=== PATIENT | female | born 1955 | race Caucasian/White ===

== ENCOUNTER 2023-11-11 14:57 | Outpatient (RCR) | payer MEDICARE, SELFPAY | END 2023-11-14 06:54 | disposition home or self-care (01) | LOC: RPT 14:57 | PROVIDERS: ATTENDING PHYSICIAN Family Medicine | DX: M25.551 Pain in right hip (principal); Z73.6 Limitation of activities due to disability | CPT/HCPCS: 97110 ==

== ENCOUNTER → 2024-01-19 06:30 | Day surgery (SDC) | payer MEDICARE, SELFPAY | LOC: GI 06:30 | PROVIDERS: ATTENDING PHYSICIAN Specialist | DX: Z12.11 Encounter for screening for malignant neoplasm of colon (principal); R19.4 Change in bowel habit; K57.30 Diverticulosis of large intestine without perforation or abscess without bleeding; D12.0 Benign neoplasm of cecum; D12.2 Benign neoplasm of ascending colon; D12.3 Benign neoplasm of transverse colon | CPT/HCPCS: 45385; 45380; 88305 ==

== ENCOUNTER → 2024-08-23 07:03 | Outpatient (REF) | payer MEDICARE, SELFPAY | LOC: MRI 07:03 | PROVIDERS: ATTENDING PHYSICIAN Psychiatry & Neurology Neurology; FAMILY PHYSICIAN Family Medicine | DX: G45.9 Transient cerebral ischemic attack, unspecified (principal) | CPT/HCPCS: 70551 ==

== ENCOUNTER → 2024-09-04 10:18 | Outpatient (REF) | payer MEDICARE, SELFPAY | LOC: RAD 10:18 | PROVIDERS: ATTENDING PHYSICIAN Psychiatry & Neurology Neurology; FAMILY PHYSICIAN Family Medicine | DX: G45.9 Transient cerebral ischemic attack, unspecified (principal) | CPT/HCPCS: 93880 ==

== ENCOUNTER → 2025-03-21 14:47 | Outpatient (REF) | payer MEDICARE, SELFPAY | LOC: RAD 14:47 | PROVIDERS: ATTENDING PHYSICIAN Student in an Organized Health Care Education/Training Program | DX: R60.0 Localized edema (principal); R22.41 Localized swelling, mass and lump, right lower limb | CPT/HCPCS: 93971 ==

== ENCOUNTER 2025-05-09 09:51 | Inpatient (IN) | payer MEDICARE, SELFPAY ==
[2025-05-09] VITALS (56 sets, daily range): BP systolic 62–115; BP diastolic 50–83; BMI 24.1
[2025-05-09 04:41] LABS: % Basophils 0.8 % (0-2); % Eosinophils 3.1 % (0-6); % Immature Granulocytes 0.3 % (0-0.5); % Lymphocytes 36.8 % (20.5-51.1); % Monocytes 9.8 % (1.7-9.3); % Neutrophils 49.2 % (42.2-75.2); Absolute Basophils 0.1 10^3/uL (0-0.2); Absolute Eosinophils 0.3 10^3/uL (0-0.7); Absolute Lymphocytes 2.9 10^3/uL (1.2-3.4); Absolute Monocytes 0.8 10^3/uL (0.1-0.6); Absolute Neutrophils 3.9 10^3/uL (1.4-6.5); Hematocrit 44.9 % (37.0-47.0); Hemoglobin 15.1 g/dL (12.0-16.0); Mean Corp Hgb Conc. 33.6 g/dL (33.0-37.0); Mean Corpuscular Hgb 31.7 pg (27.0-31.0); Mean Corpuscular Volume 94.3 fL (81.0-99.0); Mean Platelet Volume 9.6 fL (7.4-10.4); Nucleated Red Blood Cells % 0 %; Platelet Count 218 10^3/uL (130-400); Red Blood Cell Count 4.76 10^6/uL (4.20-5.40); Red Cell Dist. Width 13.2 % (11.5-14.5)
[2025-05-09 04:59] LABS: ALT (SGPT) 17 U/L (0-35); AST (SGOT) 24 U/L (14-36); Albumin 4.1 g/dl (3.5-5.0); Alkaline Phosphatase 68 U/L (38-126); Blood Urea Nitrogen 25 mg/dl (7-17); Calcium 9.5 mg/dl (8.4-10.2); Carbon Dioxide 19 mmol/L (22-30); Chloride 112 mmol/L (98-107); Estimated Creatinine Clearance 48 ml/min; Glucose 92 mg/dl (70-99); Potassium 3.4 mmol/L (3.5-5.1); Sodium 142 mmol/L (135-145); Total Bilirubin 0.7 mg/dl (0.2-1.3); Total Protein 6.4 g/dl (6.3-8.2); eGFR > 60.00
[2025-05-09 05:01] LABS: Troponin I 0.012 ng/ml
[2025-05-09] MEDS: NSS 1000 IV ×5 (05:35→20:10)
--- NOTE | 2025-05-09 05:42 | ED.GENMED ---
History of Present Illness
<Alyse Muñoz PA-C - Last Filed: 05/10/25 08:34>
General
Chief Complaint: Blood Pressure Problem
Source: patient
Exam Limitations: none
Time Seen by Provider: 05/09/25 05:19
Nursing documentation reviewed up to this point in time: agreed with
History of Present Illness
History of Present Illness:
see MDM
Past History
<SAGE Hall Last Filed: 05/10/25 08:34>
Past History
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
ED Past Surgical History: Brain and Gynecological
Social History
Tobacco: Non-smoker
Alcohol: None
Drug: None
Personal: Single
Review of Systems
<SAGE Hall Last Filed: 05/10/25 08:34>
Review of Systems
Allergies reviewed?: Yes
All Other Systems: Not applicable
Phy Exam
<SAGE Hall Last Filed: 05/10/25 08:34>
Physical Exam
Physical Exam:
GENERAL: Alert , in no apparent distress; awake and alert, very conversive; no distress
EYE: pupils equal and reactive
NECK: Supple
ENT: o/p clr, mmm.
CARDIAC: irregularly irregular, tachycardic, no murmur
LUNGS: Clear breath sounds bilaterally, no acute respiratory distress, no wheezes/rales/rhonchi
ABDOMEN: Soft, without focal tenderness, no r/g, no cvat, normal bowel sounds
NEUROLOGICAL: Alert and oriented, no focal neuro deficits
SKIN: Warm and dry, skin intact.
MUSCULOSKELETAL: No edema, well perfused. neg celeste's sign
PSYCH: Normal and appropriate interaction.
Scores
<Alyse Muñoz PA-C - Last Filed: 05/10/25 08:34>
[id number] Score for Afib Stroke Risk
Age in Years (65=0, 65-74=1, >/=75=2): 65-74
Sex (Female=+1): Female
Congestive Heart Failure History (Yes=+1): Yes
Hypertension History (Yes=+1): No
Stroke/TIA/Thromboembolism History (Yes=+2): Yes
Vascular Disease History (Yes=+1): No
Diabetes Mellitus (Yes=+1): No
Score: 5
Anticoagulation Recommendations: Recommend anticoagulation (as validated in nonvalvular fib)
<Lupe Meyer DO - Last Filed: 05/09/25 08:44>
[id number] Score for Afib Stroke Risk
Score: 5
Anticoagulation Recommendations: Recommend anticoagulation (as validated in nonvalvular fib)
Course
<Alyse Muñoz PA-C - Last Filed: 05/10/25 08:34>
Orders/Labs/Results
Orders:
Orders
05/09/25 04:26
Electrocardiogram (*1) Urgent
Reason for Study: Syncope
05/09/25 04:27
EKG- Treatment ONCE
05/09/25 04:28
Complete Blood Count/With Diff Urgent
Comprehensive Metabolic Panel Urgent
Magnesium Urgent
Comment: ADD ON
NT-proBNP Urgent
Phosphorus Urgent
Comment: ADD ON
Troponin I Urgent
05/09/25 05:19
CR Chest Portable - 1 View Urgent
Comment:
Reason For Exam: new onset afib with rvr, hypotension
Reason Study Needs to be Portable: Patient Unstable
05/09/25 05:33
0.9% Sodium Chloride 1000 ml [Nss] 1,000 ml IV BOLUS
05/09/25 05:41
Lactic Acid Urgent
05/09/25 06:07
CT Chest PE Study Urgent
Comment:
Reason For Exam: hypotension, new onset afib
05/09/25 06:15
0.9% Sodium Chloride 1000 ml [Nss] 1,000 ml IV 500 mls/hr
05/09/25 08:23
Echo 2D MMode Color/Doppler Routine
Reason for Study: hypotension, AFIB
Comment: sooner rather than later please and thank you!
05/09/25 08:26
CARDIOLOGY CONSULT Routine
Consulting Provider: Patrick Lance
Was physician already notified: Yes
05/09/25 08:47
Potassium Chloride [KCl] 40 meq PO NOW ONE
05/09/25 08:54
Admit/Transfer Patient As Directed
Co-Sign Provider:
Level of Care: Inpatient admission
Assign to:: ICU
Physician / Group: Riaz/hospitalist
Diagnosis: new onset A fib RVR, hypotension
Reason for Hospitalization: new onset A fib RVR, hypotension
Expected length of stay greater than two midnights?: Yes
ELOS- Estimated Length of Stay in days: 3
I certify the patient meets the requirements for IP care: Yes
PRN Pain Medication Management As Directed
May give lesser potent ordered pain med per pt: Yes
preference::
Protocol:: Medication orders for pain may be administered in a
manner that supports deferring to patient preference
when the pt is:
- Requesting an ordered lesser potent pain medication.
Least to most potent pain medications are defined
as: acetaminophen < NSAID < tramadol < opioids
(morphine, oxycodone, hydromorphone).
- Requesting a lesser dose of the same medication IF
ORDERED.
- Requesting a less intrusive route of administration
if both routes are prescribed by the provider (PO <
IV).
05/09/25 08:55
Code Status As Directed
Resuscitation Status: Do not resuscitate
Reached after discussion with pt or family/Healthcare POA: Yes
DNR Bracelet Application ONCE
05/09/25 09:15
Blood Culture Q30M
TRACEY Source: Blood/Venous
Specimen Description:
05/09/25 09:18
CT Head W/o Iv Contrast Routine
Comment:
Reason For Exam: headache, hx brain mets/cranitomy
Consult Neurology [NEUROLOGY CONSULT] Routine
Consulting Provider: Ariel Cain
Was physician already notified: Yes
Reason for consult: safety of OAC for AFIB, hx TIA, but patient with hx brain mets/craniotomy
05/09/25 09:20
ONCOLOGY CONSULT Routine
Consulting Provider: Wolfgang Meredith
Was physician already notified: Yes
Reason for consult: hx breast cancer with mets to brain and lungs, AFIB-considering OAC safety
05/09/25 Lunch
Cholesterol Lowering
At Your Request: Full Participation
Does patient need a safe tray?: No
Reason for opting out of Biomedical Analytical Scientist order writing: Provider Decision
Cholesterol Lowering: Sodium, 2 Gram
05/09/25 10:25
0.9% Sodium Chloride 1000 ml [Nss] 1,000 ml IV 100 mls/hr
Bisacodyl [Dulcolax] 10 mg RECTAL [id number] PRN
Docusate W/Senna [Senokot-S] 1 tablet PO BIDPRN PRN
Ondansetron Injectable [Zofran] 4 mg IV Q6HPRN PRN
Pantoprazole [Protonix IV] 40 mg IV DAILY
Polyethylene Glycol Powder [Miralax] 17 grams PO DAILYPRN PRN
05/09/25 10:25
Honing Machine Set Up Operator Consult Routine
Consulting Provider: Haja Ramirez
Was physician already notified: Yes
Activity As Directed
Activity Level: As Tolerated
Orthostatic Vital Signs As Directed
Orthostatic VS Frequency: Now
Vital Signs As Directed
Frequency: Per unit guidelines
DX Deep Vein Thrombosis Video Routine
05/09/25 10:45
Blood Culture Q30M
TRACEY Source: Blood/Venous
Specimen Description:
05/10/25 04:10
Basic Metabolic Panel IN AM
Complete Blood Count/No Diff IN AM
Magnesium IN AM
05/11/25 06:00
Basic Metabolic Panel IN AM
Complete Blood Count/No Diff IN AM
Magnesium IN AM
05/12/25 06:00
Basic Metabolic Panel IN AM
Complete Blood Count/No Diff IN AM
Magnesium IN AM
05/13/25 06:00
Basic Metabolic Panel IN AM
Complete Blood Count/No Diff IN AM
Abnormal Lab Results
05/09/25
04:28
MCH 31.7 H pg
(27.0-31.0)
Absolute Monos (auto) 0.8 H 10^3/uL
(0.1-0.6)
Monocytes % 9.8 H %
(1.7-9.3)
Potassium 3.4 L mmol/L
(3.5-5.1)
Chloride 112 H mmol/L
(98-107)
Carbon Dioxide 19 L mmol/L
(22-30)
BUN 25 H mg/dl
(7-17)
Magnesium 2.4 H mg/dl
(1.6-2.3)
05/09/25 04:28
05/09/25 04:28
Vital Signs
Initial and Last Documented VS:
Initial Vital Signs
BP
90/60
05/09/25 04:17
Last Documented Vital Signs
Temp Pulse Resp BP Pulse Ox
37.5 C 89 20 123/62 96
05/10/25 07:16 05/10/25 05:30 05/10/25 05:30 05/10/25 06:00 05/10/25 05:30
<Lupe Meyer, DO - Last Filed: 05/09/25 08:44>
Orders/Labs/Results
Orders:
Orders
05/09/25 04:26
Electrocardiogram (*1) Urgent
Reason for Study: Syncope
05/09/25 04:27
EKG- Treatment ONCE
05/09/25 04:28
Complete Blood Count/With Diff Urgent
Comprehensive Metabolic Panel Urgent
Magnesium Urgent
Comment: ADD ON
NT-proBNP Urgent
Phosphorus Urgent
Comment: ADD ON
Troponin I Urgent
05/09/25 05:19
CR Chest Portable - 1 View Urgent
Comment:
Reason For Exam: new onset afib with rvr, hypotension
Reason Study Needs to be Portable: Patient Unstable
05/09/25 05:33
0.9% Sodium Chloride 1000 ml [Nss] 1,000 ml IV BOLUS
05/09/25 05:41
Lactic Acid Urgent
05/09/25 06:07
CT Chest PE Study Urgent
Comment:
Reason For Exam: hypotension, new onset afib
05/09/25 06:15
0.9% Sodium Chloride 1000 ml [Nss] 1,000 ml IV 500 mls/hr
05/09/25 08:23
Echo 2D MMode Color/Doppler Routine
Reason for Study: hypotension, AFIB
Comment: sooner rather than later please and thank you!
05/09/25 08:26
CARDIOLOGY CONSULT Routine
Consulting Provider: Patrick Lance
Was physician already notified: Yes
05/09/25 08:47
Potassium Chloride [KCl] 40 meq PO NOW ONE
05/09/25 08:54
Admit/Transfer Patient As Directed
Co-Sign Provider:
Level of Care: Inpatient admission
Assign to:: ICU
Physician / Group: Riaz/hospitalist
Diagnosis: new onset A fib RVR, hypotension
Reason for Hospitalization: new onset A fib RVR, hypotension
Expected length of stay greater than two midnights?: Yes
ELOS- Estimated Length of Stay in days: 3
I certify the patient meets the requirements for IP care: Yes
PRN Pain Medication Management As Directed
May give lesser potent ordered pain med per pt: Yes
preference::
Protocol:: Medication orders for pain may be administered in a
manner that supports deferring to patient preference
when the pt is:
- Requesting an ordered lesser potent pain medication.
Least to most potent pain medications are defined
as: acetaminophen < NSAID < tramadol < opioids
(morphine, oxycodone, hydromorphone).
- Requesting a lesser dose of the same medication IF
ORDERED.
- Requesting a less intrusive route of administration
if both routes are prescribed by the provider (PO <
IV).
05/09/25 08:55
Code Status As Directed
Resuscitation Status: Do not resuscitate
Reached after discussion with pt or family/Healthcare POA: Yes
DNR Bracelet Application ONCE
05/09/25 09:15
Blood Culture Q30M
RTACEY Source: Blood/Venous
Specimen Description:
05/09/25 09:18
CT Head W/o Iv Contrast Routine
Comment:
Reason For Exam: headache, hx brain mets/cranitomy
Consult Neurology [NEUROLOGY CONSULT] Routine
Consulting Provider: Ariel Cain
Was physician already notified: Yes
Reason for consult: safety of OAC for AFIB, hx TIA, but patient with hx brain mets/craniotomy
05/09/25 09:20
ONCOLOGY CONSULT Routine
Consulting Provider: Wolfgang Meredith
Was physician already notified: Yes
Reason for consult: hx breast cancer with mets to brain and lungs, AFIB-considering OAC safety
05/09/25 Lunch
Cholesterol Lowering
At Your Request: Full Participation
Does patient need a safe tray?: No
Reason for opting out of Biomedical Analytical Scientist order writing: Provider Decision
Cholesterol Lowering: Sodium, 2 Gram
05/09/25 10:25
0.9% Sodium Chloride 1000 ml [Nss] 1,000 ml IV 100 mls/hr
Bisacodyl [Dulcolax] 10 mg RECTAL [id number] PRN
Docusate W/Senna [Senokot-S] 1 tablet PO BIDPRN PRN
Ondansetron Injectable [Zofran] 4 mg IV Q6HPRN PRN
Pantoprazole [Protonix IV] 40 mg IV DAILY
Polyethylene Glycol Powder [Miralax] 17 grams PO DAILYPRN PRN
05/09/25 10:25
Honing Machine Set Up Operator Consult Routine
Consulting Provider: Haja Ramirez
Was physician already notified: Yes
Activity As Directed
Activity Level: As Tolerated
Orthostatic Vital Signs As Directed
Orthostatic VS Frequency: Now
Vital Signs As Directed
Frequency: Per unit guidelines
DX Deep Vein Thrombosis Video Routine
05/09/25 10:45
Blood Culture Q30M
TRACEY Source: Blood/Venous
Specimen Description:
05/10/25 04:10
Basic Metabolic Panel IN AM
Complete Blood Count/No Diff IN AM
Magnesium IN AM
05/11/25 06:00
Basic Metabolic Panel IN AM
Complete Blood Count/No Diff IN AM
Magnesium IN AM
05/12/25 06:00
Basic Metabolic Panel IN AM
Complete Blood Count/No Diff IN AM
Magnesium IN AM
05/13/25 06:00
Basic Metabolic Panel IN AM
Complete Blood Count/No Diff IN AM
Abnormal Lab Results
05/09/25
04:28
MCH 31.7 H pg
(27.0-31.0)
Absolute Monos (auto) 0.8 H 10^3/uL
(0.1-0.6)
Monocytes % 9.8 H %
(1.7-9.3)
Potassium 3.4 L mmol/L
(3.5-5.1)
Chloride 112 H mmol/L
(98-107)
Carbon Dioxide 19 L mmol/L
(22-30)
BUN 25 H mg/dl
(7-17)
Magnesium 2.4 H mg/dl
(1.6-2.3)
05/09/25 04:28
05/09/25 04:28
Vital Signs
Initial and Last Documented VS:
Initial Vital Signs
BP
90/60
05/09/25 04:17
Last Documented Vital Signs
Temp Pulse Resp BP Pulse Ox
37.5 C 89 20 123/62 96
05/10/25 07:16 05/10/25 05:30 05/10/25 05:30 05/10/25 06:00 05/10/25 05:30
<Alyse Muñoz PA-C - Last Filed: 05/10/25 08:34>
MDM/Problems Addressed
Differential Diagnosis Includes:
sepsis, afib with RVR, CHF, hypoperfusion, PE
MDM/Problems Addressed:
Note:
CHIEF COMPLAINT(S)
Dizziness, lightheadedness, and hypotension.
HISTORY OF PRESENT ILLNESS
The patient is a 75-year-old female with a significant past medical history of metastatic breast cancer and presumed transient ischemic attack (TIA) who presented with dizziness and lightheadedness. The symptoms began around 2:30-3:00 AM when the
patient tried to get out of bed, reporting significant lightheadedness. She described sensations of pressure around her head but denied any headache. She noted a significant drop in her blood pressure, with home measurements showing 70/50 mmHg. The
patient indicated a history of atrial fibrillation suspected during a prior Holter monitor evaluation showing supraventricular tachycardia (SVT), though previous assessment in July showed no atrial fibrillation. On presentation, she was found
to be in atrial fibrillation with a rapid ventricular response, with low blood pressure noted, even after receiving intravenous fluids. The patient also reported indigestion and no chest pain. She denied any recent fever, cough, or gastrointestinal
symptoms like nausea or diarrhea.
ADDITIONAL HISTORY OBTAINED FROM SOURCES OTHER THAN THE PATIENT
According to the patients brother, she has had previous episodes of TIAs, presumed of retinal origin.
CHRONIC MEDICAL CONDITIONS SIGNIFICANTLY AFFECTING CARE
- Metastatic breast cancer with spread to the lungs and brain, previously treated with surgery and medical therapy.
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
- Paroxysmal supraventricular tachycardia in the past.
PHYSICAL EXAM
- Nursing notes reviewed and vital signs reviewed.
- Cardiac: The patient was found to be in atrial fibrillation with a rapid ventricular response.
- The patient exhibited signs of low blood pressure despite fluid administration.
PROBLEM LIST
Acute:
- Atrial fibrillation with rapid ventricular response
- Hypotension
- Dizziness and lightheadedness
Chronic:
- Metastatic breast cancer
- History of presumed transient ischemic attack
- Paroxysmal supraventricular tachycardia
PLAN
- Continue monitoring blood pressure and rhythm.
- Administer intravenous fluids for blood pressure support.
- Evaluate cardiac function and consider electrophysiological assessment.
- Coordinate follow-up care with the patients scientific writer and monitor heart rhythm.
DIFFERENTIAL DIAGNOSIS
The Differential Diagnosis includes, in no particular order and is not limited to:
1. Atrial fibrillation with rapid ventricular response
2. Hypotension secondary to atrial fibrillation
4. Volume depletion or dehydration
5. Cardiac arrhythmias other than atrial fibrillation
6. Medication-induced hypotension
7. Neurogenic causes of dizziness
8. Orthostatic hypotension
9. Vasovagal syncope
10. Hypoglycemia
CARE-UPDATE
05/09/25 - 06:49
Patients blood pressure transiently increased to 90s/70s with fluid administration but is now downtrending. The patient remains awake, alert, and comfortable, with normal oxygen saturation. Atrial fibrillation is rate-controlled. Chest x-ray is
consistent with prior lobectomy and shows possible hyperinflation, but no signs of pulmonary edema; BNP is normal. The attending physician recommended holding off on heparin and cardioversion for the time being. Dr. Franklin from cardiology is aware
and will oversee the admission to the hospital service.
<Alyse Muñoz PA-C - Last Filed: 05/10/25 08:34>
*Critical Care Note
Total Time (30-74mins, 75-104mins- exclusive of procedures): Not Applicable
ED Attending Note
<Alyse Muñoz PA-C - Last Filed: 05/10/25 08:34>
-
Portions of this chart may have been created with voice recognition software.� Occasional wrong word or��sound alike� substitutions may have occurred due to the inherent limitations of voice recognition software.
<Lupe Meyer DO - Last Filed: 05/09/25 08:44>
ED Attending Note
Patient seen and examined by attending physician: Yes
I performed the substantive portion of visit, reviewed & personally made and approve the management plan that is documented in note by myself or SADA.: Yes
ED Attending Note:
69 yo F with hx right breast ca, mets to brain s/p mastectomy and brain met resection 2007. No hx of recurrence and continues to follow with annual surveillance CT chest/abd/pelvis as well as MRI brain, last performed 01/2025. she has is of retinal
TIA. Maintained on low dose asa and Holter monitor x 2 in the past, 1 showing few brief episodes SVT, another unremarkable.
She presents with acute lightheadedness without CP nor SOB nor palpitations. Sig hypotensive at home and noted to be in afib with RVR 130's. BP improved with IVF bolus.
She has had no recent URI nor GI illness. No fever. Follows with cardiology and metoprolol dose increased a few months ago. No recent change in meds. No recent steroids.
Moderately hypotensive upon arrival, has improved w IVF.
Afib persists with now controlled vent response 80's to 105. She continues to deny CP deny palpitations.
69 yo F appears her stated age. lying supine. bright and alert, pleasant, quite chatty, appears in NAD.
Heart: irreg, irreg at 90. no murmur nor rub
Lungs: CTA no respiratory distress.
Abd: soft, ND/NT, no masses
Skin: warm and ry, normal color, well perfused.
At this point, unclear as to cause of hypotension. concern for occult infection, sepsis however afebrile. adrenal insufficiency is unlikely.
Dehydration, anemia
It is also unclear as to onset of atrial fibrillation and as rate is controlled, I am not convinced that afib is cause for hypotension.
Labs thus far unremarkable
CT chest is pending
Lactic acid is pending
Cardiology and hospitalist notified.
After 2 L NSS BP improved to 90's systolic. at this point, no indication for pressors.
Discharge Plan
Departure
Patient Disposition: Admit
Date of Disposition: 05/09/25
Time of Disposition: 06:00
Admit to: IMU
Presentation/result/management discussed w/ accepting MD/DO: Hospitalist
Condition: Fair
Covid-19: Not Applicable
Discharge Problem:
New onset a-fib, Atrial fibrillation with rapid ventricular response, Hypotension
Interventions
Interventions:
*Risk Screen - Suicide Last Done: 05/09/25 04:18
*General Assessment Last Done: 05/09/25 04:18
*Neglect/Abuse Screening Last Done: 05/09/25 04:18
*ED- Fall Risk Assessment Last Done: 05/09/25 04:43
*ED COVID-19 Vaccine History Last Done: 05/09/25 04:43
*Nursing Disposition Last Done: 05/09/25 11:27
ED- Cardiac Assessment Last Done: 05/09/25 08:00
ED- Neurological Assessment Last Done: 05/09/25 08:00
ED- Pulmonary Assessment Last Done: 05/09/25 08:00
Discharge Date and Time
Discharge Date/Time: 05/09/25 11:57
[2025-05-09 05:50] LABS: NT-proBNP 443 pg/ml
[2025-05-09 06:20] LABS: Lactic Acid 1.5 mmol/L (0.7-2.0)
--- NOTE | 2025-05-09 06:49 | EDRN ---
IV team currently at the pts bedside
--- NOTE | 2025-05-09 08:05 | EDRN ---
cardiology currently at the pts bedside
--- NOTE | 2025-05-09 08:19 | CON.CAR ---
Addendum entered and electronically signed by Patrick Lance MD 05/09/25 10:43:
critical caretime 60 min
Addendum entered and electronically signed by Patrick Lance MD 05/09/25 09:13:
I saw and examined the patient.
The PEDIATRIC LPN's note was reviewed and I agree with the note.
Primary hygiene coordinator Dr. Arabella Souza
Oncologist on Dr Olga Dumont
Neuro oncologist Dr Nick Dumont
Comment:
69-year-old female with complex medical history. 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
2019, heart failure preserved ejection fraction. Patient presents to the ER with hypotension. Was feeling okay but then woke up last night with a headache and some head pressure and then checked her blood pressure and recorded a systolic blood
pressure in the 70s. Came to ER was noted to be hypotensive and had atrial fibrillation with heart rates ranging from 100-130. Blood pressure improved with IV fluids although systolics currently in the 90s. Patient currently feels better.
Per notes Zio patch 2022 with SVT. Patient started on metoprolol low burden SVT records suggest this was repeated longest episode was 18 seconds and there appeared to be A-fib there was a discussion by phone at 2023 patient has significant concerns
regarding anticoagulation from a neurologic perspective patient was not placed on anticoagulation
Does suggest she had visual change of unclear etiology in June 2024. Patient states that she had a retinal TIA. Details not clear.
Records state that anticoagulation was discussed at length in the past and patient was hesitant with a lot of concerns.
PMH
Breast cancer diagnosed 2002
Mastectomy in right chest wall XRT. Patient also with previous treatment with chemotherapy as noted above
Craniotomy and resection of left frontal metastasis 09/13/2008
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
HFpEF
PVCs
April 2023 concern for possible pulmonary AVM
Echo 12/22/2023 ejection fraction 56% grade 2 diastolic dysfunction mild mitral regurgitation estimated PA pressure 32 mmHg
Hypotension -I will patient had to be hypotension on presentation also noted to have A-fib A-fib rates are not that high even with rates in the low 100s patient has relatively low blood pressure.
Although A-fib may be contributing to lower blood pressures would also need to consider other factors which could contribute. Patient getting CT scan to exclude pulmonary embolism. Would also consider underlying infection.
-CT preliminary without evidence of acute PE will await full report
-IV fluids
-Blood culture, urinalysis with reflex to culture
-Echocardiogram
.
A-fib. Based on prior history patient's had some SVT T that was brief on prior monitoring and there had been suggestion of atrial fibrillation based on previous hygiene coordinator notes there had been discussions about anticoagulation as an outpatient
but patient was reluctant. Patient's [id number] risk is increased if he truly had a TIA in June. However unclear about safety of anticoagulation in this patient who has metastatic breast cancer and previous craniotomy.
-Would get input from oncology and neurology regarding safety of anticoagulation
-Echocardiogram
-Continue to monitor rates and pressures as patient's received IV fluids. If patient needs additional rate control then we will need to consider IV amiodarone since blood pressures limiting treatment
.
Metastatic [place] CA -tx per Onc
Original Note:
Consultation
Consultation Request
Date/Time Consultation Requested: 05/09/25 06
Date/Time Consultation Performed: 05/09/25 08
Requesting Provider: Alyse BECKETT
Performing Provider: Dorie RODRIGUEZ for Dr. Lance
Reason for Consultation: AFIB
Medical History
-
Chief Complaint: light-headedness
History of Present Illness:
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
craniotomy resection 2007, cavernoma, wedge resection who is here since around 2:30 AM she woke up with a headache. Then, she developed light-headedness. She checked a blood pressure, which was low. She came in and was noted to be in AFIB with RVR.
She has been given IVF and feels improved.
Past Medical History
Past Medical History: Arrhythmias, Cancer and CHF
Social History
Tobacco: Former Smoker
Family History
Family History: Reviewed & Not Pertinent and Other (brothers with AFIB)
Allergies / Home Medications
Allergy/AdvReac Type Severity Reaction Status Date / Time
No Known Allergies Allergy Unverified 05/09/25 04:17
Meds pending- I contacted pharmacist who will do her med rec next
Review of Systems
-
History Source: Patient
All other systems: Negative unless noted
Neurological: Headache and Other (light-headedness)
Physical Exam
Vital Signs
Temp Pulse Resp BP Pulse Ox
97.5 F 105 17 97/71 98
05/09/25 05:38 05/09/25 08:00 05/09/25 08:00 05/09/25 08:00 05/09/25 08:00
Lab Results
05/09/25 04:28
05/09/25 04:28
Troponin I 0.012 ng/ml 05/09/25 04:28
Rqg-Z-Llyntvhfnhf Pept 443 pg/ml 05/09/25 04:28
Physical Exam
General: Well Developed, Well Nourished and No Apparent Distress
HEENT: Normocephalic and Anicteric
Respiratory: Clear and Non Labored Respirations
Cardiac: Irregular Rhythm
Musculoskeletal: No Edema
Skin: Warm and Dry
Neuro: AO x 3
Psych: Calm
Impression / Plan
-
Light-headedness:
-improved
-s/p IVF
-check echo
Hypotension:
-reasoning unclear, AFIB rates not very high
-fluids given, CT scan as below
-check echo
-check blood cx, urine cultures
AFIB, type and onset unknown, but by symptoms sounds like started overnight:
-rates mostly around 100 BPM, but occasionally as high as 131 BPM. BP on low end. May need amiodarone, will review with hygiene coordinator.
-Brief PAF noted in the past per OP chart. Brief episodes of SVT reports, and one clear episode of afib for 18 seconds per chart. However, OAC was not initiated at that time.
-[id number] score is at least 5 for age, female, CHF, TIA. However, with brain hx, have to weight risk/benefits. Further discussion with team/patient.
Hx HFpEF:
-chronic, does not appear overloaded
Hypokalemia:
-replace and monitor
Hx breast ca with mets lung and brain:
-follows as OP
Data:
CT Scan chest 05/09/25: MODERATE CARDIOMEGALY with SEVERE LEFT ATRIAL ENLARGEMENT. New 1.9 cm enlarged right upper paratracheal lymph node. Previous left upper lobe pulmonary wedge resection with associated scarring. Moderate elevation of the left
hemidiaphragm secondary to left lung volume loss. 2.6 cm PULMONARY ARTERIOVENOUS MALFORMATION in the lingula. Mild radiation pneumonitis in the right lung apex. Mild to moderate subpleural scarring and subsegmental atelectasis in the lower lobes.
Previous right breast mastectomy. Multiple chronic left posterior rib osteotomies. Severe discogenic degenerative disease in the thoracolumbar junction.
Data Reviewed
-
EKG: Tracing Personally Visualized and interpreted (AFIB with RVR 131 BPM, nonspecific T abnormality)
CT Scan: Report Reviewed by me (as noted)
Medical Tests (Nuc Med, Echo etc): Report Reviewed by me and Other (updated echo ordered)
Labs: Labs Reviewed by me
--- NOTE | 2025-05-09 08:27 | HPS.HSE ---
Addendum entered and electronically signed by Enriqueta Mello MD 05/09/25 11:02:
total time 80 min
Addendum entered and electronically signed by Enriqueta Mello MD 05/09/25 11:02:
Extensive discussion with Card Dr Lance.
He would like Onc and Neuro on board to discuss anticoagulation before starting it (given pt has h/o metastatic cancer, h/o TIA etc.)
Ok to start AC per Neuro Dr Cain.
OK to start AC per pt's outpatient power generation plant operator (Dr Lance d/w pt's outpt power generation plant operator).
Use heparin drip for now (can be stopped immediately) with plan for CHERYLE/DCCV tmr if pt does not self convert.
Original Note:
Family Physician
-
Family Physician: Shefali Gordon MD
Chief Complaint
-
dizziness
hypotension
palpitation
History of Present Illness
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
melanoma; p/w dizziness and lightheadedness. Her symptoms began around 2:30-3:00 AM when the patient tried to get out of bed. She noted a significant drop in her blood pressure, with home measurements showing 70/50 mmHg.
She denies to other symptoms such as CP, SOB, abd pain, change in BM etc.
In the ED, she was found to be in atrial fibrillation with rapid ventricular response, and low blood pressure. BP slightly improved following IVF but trended down again.
Medical History
Past Medical History
Past Medical History: Reports Other
Additional Past Medical History:
metastatic breast cancer (to brain and lung, previously treated with surgery and medical therapy, last treatment 2019),
presumed retinal transient ischemic attack,
Paroxysmal supraventricular tachycardia,
R arm melanoma
Past Surgical History: Reports Other
Additional Past Surgical History:
R mastectomy followed by deep flap reconstruction
L lung wedge resection
Craniotomy L frontal lobe 2007
RFA lung
L thoracotomy 2008
Social History
Tobacco: Smoker (quit 40 years ago )
Alcohol: Occasional
Living: Alone
Family History
Family History: Not pertinent
Allergies / Home Medications
Allergies reflects when Allergies were last updated in [employer].
Home Medications with original date entered in [employer]
Allergy/Medication List:
Medications on admission are unable to be verified or confirmed at this time.
Review of Systems
-
Cardiac: Reports See HPI and Palpitations; Denies Chest Pain
Neurological: Reports See HPI, Dizzy and Weakness
Physical Exam
Vital Signs
Vital Signs
Temp Pulse Resp BP Pulse Ox
36.4 C 105 17 97/71 98
05/09/25 05:38 05/09/25 08:00 05/09/25 08:00 05/09/25 08:00 05/09/25 08:00
Physical Exam
General: Well Developed, Well Nourished, No Apparent Distress, Comfortable and Conversant
HEENT: NormoCephalic, Moist mucous membranes and Atraumatic
Respiratory: Clear and Non Labored Respirations; No Accessory Resp Muscle Use
Cardiac: S1/S2 and Regular Rhythm; No Murmur or Rub
GI: Soft, Non Tender, Non Distended and Normal Bowel Sounds; No Organomegaly
Rectal: Deferred by Provider
Musculoskeletal: No Clubbing, No Cyanosis and No Edema
Skin: No Rash
Neuro: Awake and Alert
Psych: Calm and Intact Judgment/Insight
Laboratory Results
-
05/09/25 04:28
05/09/25 04:28
Laboratory Results
Lactic Acid 1.5 mmol/L (0.7-2.0) 05/09/25 05:41
Total Bilirubin 0.7 mg/dl (0.2-1.3) 05/09/25 04:28
AST 24 U/L (14-36) 05/09/25 04:28
ALT 17 U/L (0-35) 05/09/25 04:28
Alkaline Phosphatase 68 U/L (38-126) 05/09/25 04:28
Troponin I 0.012 ng/ml 05/09/25 04:28
Data Reviewed
-
CT Scan: Report Reviewed by me
Lab Data: Labs Reviewed by me
Impression/Plan
-
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
melanoma; p/w dizziness and lightheadedness. Her symptoms began around 2:30-3:00 AM when the patient tried to get out of bed. She noted a significant drop in her blood pressure, with home measurements showing 70/50 mmHg.
She denies to other symptoms such as CP, SOB, abd pain, change in BM etc.
In the ED, she was found to be in atrial fibrillation with rapid ventricular response, and low blood pressure. BP slightly improved following IVF but trended down again.
CT PE:
1. MODERATE CARDIOMEGALY with SEVERE LEFT ATRIAL ENLARGEMENT.
2. New 1.9 cm enlarged right upper paratracheal lymph node.
3. Previous left upper lobe pulmonary wedge resection with associated scarring.
4. Moderate elevation of the left hemidiaphragm secondary to left lung volume loss.
5. 2.6 cm PULMONARY ARTERIOVENOUS MALFORMATION in the lingula.
6. Mild radiation pneumonitis in the right lung apex.
7. Mild to moderate subpleural scarring and subsegmental atelectasis in the lower lobes.
8. Previous right breast mastectomy.
9. Multiple chronic left posterior rib osteotomies.
10. Severe discogenic degenerative disease in the thoracolumbar junction.
A/P:
# New onset Atrial fibrillation with rapid ventricular response
# Hypotension likely related to A fib
# Dizziness and lightheadedness, due to above
# h/o Paroxysmal supraventricular tachycardia
s/p 1500 cc NSS, cont maintenance IVF with NSS at 120 cc/hr
Check echo
Check orthostatic VS if able
Admit to ICU in case needing pressor support
Principal Scientist CS
Card consulted
Other medical conditions:
# Metastatic breast cancer to brain and lung, previously treated with surgery and medical therapy, last treatment 2019
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
DVT ppx: Lovenox SQ for now, will likely need OAC, defer to card
Code status: DNR DNI, confirmed with pt
--- NOTE | 2025-05-09 08:41 | EDRN ---
the pt pressed the call shipman and this RN entered the pts room, the pt stated that she needed to urinate, this RN explained the use of the pure wick to the pt and the pt was agreeable to using the pure wick, pure wick in place
--- NOTE | 2025-05-09 08:42 | EDRN ---
hospitalist currently at the pts bedside
--- NOTE | 2025-05-09 09:48 | CON.NEURO4 ---
Addendum entered and electronically signed by Ariel Cain MD 05/09/25 12:57:
Studies reviewed.
I have personally examined the patient. I reviewed and agree with the COLORIST PHOTOGRAPHY's Note.
My addenda:
Awake, alert, interactive. No acute distress.
Speech intact.
Follows 2-step requests w/o difficulty. No tremor.
Extra-ocular movements grossly intact.
Facial movements full and symmetric. Hearing intact to normal conversational volume.
Normal UE movements bilaterally.
Neck: full ROM.
Chest: no dyspnea
Heart: no JVD
Ext: (-) Clubbing, (-) Cyanosis, (-) Edema
IMPRESSIONS/RECOMMENDATIONS:
Abrupt onset of lightheadedness in patient with prior left frontal metastasis with craniotomy in 2007
neurological symptoms due to hypotension
OK to anticoagulate for atrial fibrillation from neurological standpoint based on distant craniotomy, not recent. No evidence of hemorrhagic changes to increase risk
no indication for anti-seizure medications or further neuroimaging
Will follow as needed.
Original Note:
Consultation - Neurology 4
-
CONSULTING PHYSICIAN: Ariel Cain MD
REFERRING PHYSICIAN: Cardiology/MICHAEL Carcamo
DICTATED BY: MICHAEL Monet
DATE/TIME OF REQUEST: 05/09/25
DATE/TIME OF CONSULTATION: 05/09/25
Reason for Consultation: History of brain metastases
History of Present Illness:
This is a 69-year-old left-handed female who has presented to the hospital with report of headache, light-headedness, and hypotension. She has a history of breast cancer with mets to the lung and brain and is followed by neuro-oncology Dr. Romero
Samantha at [place].
From outpatient evaluation by Dr. Singh on 08/29/2024:
'
'
Patient reports that she woke up this morning (05/09/25) with a headache. The headache turned into light-headedness and she just wasn't feeling right. She checked her blood pressure at home and it was 70/50. She continued to feel progressively worse
and called 911. Blood pressure since arrival in the ER has been as low as 62/50, and she was found to be in Afib with RVR. She received multiple IV fluid boluses which she reports resolved her headache and light-headedness. Neurology is consulted to
determine if it is safe to initiate oral anticoagulation for Afib in the setting of prior brain metastases. Patient currently denies any headache, dizziness, vision changes, speech/swallow difficulty, numbness, and weakness. She undergoes regular
brain surveillance imaging, MRI brain from 08/23/24 was stable and CTA head was unremarkable.
Past Medical History: Breast cancer with mets to the lung and brain, melanoma, HFpEF, anxiety, depression, TIA, HLD, B12 deficiency
Surgical History: L frontal lobe crani for tumor resection, lung resection, excision melanoma, RORY/BSO, R mastectomy
Family History: Reviewed and noncontributory.
Social History: Former smoker.
Allergies: No known allergies.
Home Medications: See below.
Review of Symptoms:
Patient denies any fever, headache, chest pain, shortness of breath, GI or symptoms.
�Per the HPI.�All systems are reviewed negative except above.
Physical Exam:
The patient is afebrile, abdomen is nondistended, breathing is unlabored, skin is warm and dry, trace right knee edema.
Neurologic Examination:
The patient is awake, alert and oriented x 3. She is able to follow commands and answer questions appropriately. There is no aphasia or dysarthria. On cranial nerve assessment, pupils are 3 mm bilateral, round and reactive to light and
accommodation. Visual ruiz are full. Extraocular movements are intact. Facial sensations are intact and bilaterally symmetrical, there is no facial asymmetry. Hearing is intact bilaterally to normal conversation volume. Tongue palate and uvula are
midline. Sternocleidomastoid strengths are full bilaterally. Motor strengths are 5/5 bilateral upper and lower extremities on medical research Rosebud scale. There is no drift or involuntary movement noted. Deep tendon reflexes are 2+ bilateral
upper and lower extremities and Babinski is absent bilaterally. There was no extinction noted on double simultaneous stimulation. Coordination is intact by finger to nose bilaterally.
Lab Results: See below.
Neuro Imaging:
1. CT Head 05/09/25: No acute intracranial abnormality identified. Left frontal area of encephalomalacia related to previous resection of intracranial metastasis
Differentials for the patient's presentation include:
1. CT head imaging is negative for hemorrhage and intracranial metastasis appears stable.
2. History of breast cancer with mets to the brain and lung.
3. New diagnosis Afib.
Recommendations:
-From a neurological perspective, there is no barrier to initiating anticoagulation in the setting of Afib.
-Patient should continue to follow with Neuro-Oncology at [place].
Discussed patient care with: Dr. Cain, the patient
Vital Signs and Labs
-
Vital Signs and Labs:
Vital Signs
Temp Pulse Resp BP Pulse Ox
97.5 F 107 16 91/59 98
05/09/25 05:38 05/09/25 11:27 05/09/25 11:27 05/09/25 11:27 05/09/25 11:27
Lab Results
05/09/25 11:04
05/09/25 04:28
APTT 25.2 Sec (23.4-35.0) 05/09/25 11:04
Sodium 142 mmol/L (135-145) 05/09/25 04:28
Potassium 3.4 mmol/L (3.5-5.1) L 05/09/25 04:28
BUN 25 mg/dl (7-17) H 05/09/25 04:28
Glucose 92 mg/dl (70-99) 05/09/25 04:28
Calcium 9.5 mg/dl (8.4-10.2) 05/09/25 04:28
Top-C-Optbzdeprmr Pept 443 pg/ml 05/09/25 04:28
Medications
-
Active Medications
Generic Name Dose Route Start Last Admin
Trade Name Freq PRN Reason Stop Dose Admin
Bisacodyl 10 mg 05/09/25 10:25
Bisacodyl 10 Mg Rectal Suppository RECTAL 06/06/25 10:24
[id number] PRN
constipation
Sodium Chloride 1,000 mls @ 100 mls/hr 05/09/25 10:25 05/09/25 10:51
Nss IV 1,000 mls
.Q10H MARISOL Administration
Heparin Sodium 25,000 units in 250 mls @ 0 mls/hr 05/09/25 11:00 05/09/25 11:14
Heparin 87776 Units/250 Ml IV 250 mls
PER PROTOCOL MARISOL Administration
Protocol
Per Protocol
Ondansetron HCl 4 mg 05/09/25 10:25
Ondansetron 4 Mg/2 Ml Vial IV 06/06/25 10:24
Q6HPRN PRN
nausea and vomiting
Pantoprazole Sodium 40 mg 05/09/25 10:25 05/09/25 10:40
Pantoprazole Sodium 40 Mg/10 Ml Vial IV 06/06/25 10:24 40 mg
DAILY MARISOL Administration
Polyethylene Glycol 17 grams 05/09/25 10:25
Polyethylene Glycol Powder 17 Grams Packet PO 06/06/25 10:24
DAILYPRN PRN
constipation
Senna/Docusate Sodium 1 tablet 05/09/25 10:25
Docusate W/Senna (Inessa-Colace) Tablet PO 06/06/25 10:24
BIDPRN PRN
constipation
Sodium Chloride 0 flush 05/09/25 11:00
Sodium Chloride 0.9% (Flush) Syringe IV 06/06/25 10:59
PER PROTOCOL MARISOL
Home Medications
�Medication �Instructions �Recorded
ascorbic acid (vitamin C) 500 mg 500 mg PO DAILY Supplement 05/09/25
tablet (Vitamin C)
aspirin 81 mg tablet 81 mg PO DAILY Heart 05/09/25
Disease/Condition
atorvastatin 10 mg tablet 5 mg PO HS High Cholesterol 05/09/25
cholecalciferol (vitamin D3) 50 50 mcg PO DAILY Supplement 05/09/25
mcg (2,000 unit) tablet (Vitamin
D3)
coenzyme Q10 100 mg capsule 200 mg PO DAILY High Cholesterol 05/09/25
(CoQ-10)
cyanocobalamin (vitamin B-12) 1,000 mcg PO DAILY Supplement 05/09/25
1,000 mcg tablet (Vitamin B-12)
dapagliflozin propanediol 10 mg 10 mg PO DAILY 05/09/25
tablet (Farxiga)
eplerenone 25 mg tablet 25 mg PO DAILY Fluid 05/09/25
Retention/Swelling
metoprolol succinate 25 mg 25 mg PO BID Arrhythmia 05/09/25
tablet,extended release 24 hr
psyllium 1 packet PO DAILY Constipation 05/09/25
sacubitril 24 mg-valsartan 26 mg 1 tab PO BID Blood Pressure 05/09/25
tablet (Entresto)
--- NOTE | 2025-05-09 10:00 | EDRN ---
neurology currently at the pts bedside
--- NOTE | 2025-05-09 10:26 | EDRN ---
cardiology currently at the pts bedside
[2025-05-09] MEDS: KCL 40 MEQ PO (10:37)
[2025-05-09] MEDS: PROTONIX IV 40 MG IV (10:40)
--- NOTE | 2025-05-09 10:43 | W.PN.UPDATE ---
Update Note
Progress Note Update
Reviewed issues by vega Mariscal. as an outpatient Angelic Lang was felt to be safe for anticoagulation. Apparently this had also been reviewed with her neuro oncologist. Patient had a head CT today with no evidence of acute abnormality.
No evidence of bleed. Patient also seen by neuro. [place] to be safe for anticoagulation.
I reassessed the patient. SBP 98. Patient currently comfortable heart rate 104-108 in A-fib. Based on current heart rate and no need for additional rate control at this time. Would continue to monitor on telemetry and see if she spontaneously
converts to sinus rhythm. Would initiate anticoagulation. Considering all the issues above would start with IV heparin and if patient continues to tolerate anticoagulation with no issues then transition to Eliquis tomorrow. If patient does not
spontaneously convert then would consider CHERYLE cardioversion in a.m.
--- NOTE | 2025-05-09 10:46 | CON.ONC ---
Impression
Impression
# Hypotension
-CT preliminary without evidence of acute PE
- Continue IV fluids
- Follow blood culture, urinalysis with reflex to culture
-Echocardiogram shows EF 60 to 65%
-Hypotension could be in the setting of A-fib
-Management per primary team
#A-fib
-Brain MRI
-At the current time, no evidence of active cancer. given history of previous TIA and increased [id number] score, anticoagulation is recommended
Patient History
History of Present Illness
69-year-old female with past medical history of right-sided breast cancer with metastatic disease to her lung and brain, who underwent craniotomy and resection at [facility] (2007) + chemotherapy with Adriamycin, Cytoxan and Herceptin (last
treatment 2019) , HFpEF, retinal TIA and right arm melanoma. Patient presented to the ER with dizziness and lightheadedness and was found to be hypotensive and in atrial fibrillation with heart rates ranging from 100-130. Blood pressure somewhat
improved with IV fluids although SBP remains in the 90s. Patient had been previously diagnosed with SVT and was started on metoprolol. Anticoagulation was held because of concerns of metastatic disease and previous craniotomy. We have been
consulted to evaluate the risk-benefit of starting anticoagulation giving her past medical history.
Past-Medical/Surgical History
see above
Patient Medication
�Medication �Instructions �Recorded �Confirmed �Last Taken �Type
ascorbic acid (vitamin C) 500 mg 500 mg PO DAILY Supplement 05/09/25 05/09/25 05/08/25 History
tablet (Vitamin C)
aspirin 81 mg tablet 81 mg PO DAILY Heart 05/09/25 05/09/25 05/08/25 History
Disease/Condition
atorvastatin 10 mg tablet 5 mg PO HS High Cholesterol 05/09/25 05/09/25 05/08/25 History
cholecalciferol (vitamin D3) 50 50 mcg PO DAILY Supplement 05/09/25 05/09/25 05/08/25 History
mcg (2,000 unit) tablet (Vitamin
D3)
coenzyme Q10 100 mg capsule 200 mg PO DAILY High Cholesterol 05/09/25 05/09/25 05/08/25 History
(CoQ-10)
cyanocobalamin (vitamin B-12) 1,000 mcg PO DAILY Supplement 05/09/25 05/09/25 05/08/25 History
1,000 mcg tablet (Vitamin B-12)
dapagliflozin propanediol 10 mg 10 mg PO DAILY 05/09/25 05/09/25 05/08/25 History
tablet (Farxiga)
eplerenone 25 mg tablet 25 mg PO DAILY Fluid 05/09/25 05/09/25 05/08/25 History
Retention/Swelling
metoprolol succinate 25 mg 25 mg PO BID Arrhythmia 05/09/25 05/09/25 05/08/25 History
tablet,extended release 24 hr
psyllium 1 packet PO DAILY Constipation 05/09/25 05/09/25 05/08/25 History
sacubitril 24 mg-valsartan 26 mg 1 tab PO BID Blood Pressure 05/09/25 05/09/25 05/08/25 History
tablet (Entresto)
Active Medications
Generic Name Dose Route Start Last Admin
Trade Name Freq PRN Reason Stop Dose Admin
Bisacodyl 10 mg 05/09/25 10:25
Bisacodyl 10 Mg Rectal Suppository RECTAL 06/06/25 10:24
[id number] PRN
constipation
Enoxaparin Sodium 40 mg 05/09/25 18:00
Enoxaparin Sodium 40 Mg/0.4 Ml Syringe SC 06/06/25 17:59
QPM MARISOL
Sodium Chloride 500 mls @ 75 mls/hr 05/09/25 10:00
Nss IV
.Q6H40M MARISOL
Sodium Chloride 1,000 mls @ 120 mls/hr 05/09/25 10:25
Nss IV
.Q8H20M MARISOL
Ondansetron HCl 4 mg 05/09/25 10:25
Ondansetron 4 Mg/2 Ml Vial IV 06/06/25 10:24
Q6HPRN PRN
nausea and vomiting
Pantoprazole Sodium 40 mg 05/09/25 10:25 05/09/25 10:40
Pantoprazole Sodium 40 Mg/10 Ml Vial IV 06/06/25 10:24 40 mg
DAILY MARISOL Administration
Polyethylene Glycol 17 grams 05/09/25 10:25
Polyethylene Glycol Powder 17 Grams Packet PO 06/06/25 10:24
DAILYPRN PRN
constipation
Senna/Docusate Sodium 1 tablet 05/09/25 10:25
Docusate W/Senna (Inessa-Colace) Tablet PO 06/06/25 10:24
BIDPRN PRN
constipation
Sodium Chloride 0 flush 05/09/25 11:00
Sodium Chloride 0.9% (Flush) Syringe IV 06/06/25 10:59
PER PROTOCOL MARISOL
Review of Systems
-
History Source: Patient
All Other Systems: Reviewed and Negative
Physical Exam
-
General: Well Developed, Well Nourished and No Apparent Distress
HEENT: Moist Mucous Membranes
Cardiology: Irregular Rate/Rhythm
Pulmonary: Clear
GI: Soft and Normal Bowel Sounds
Musculoskeletal: No Clubbing, No Cyanosis and No Edema
Extremities: Pulses Present
Skin: Warm and Dry
Psych: Calm
Labs
Lab Results
WBC 8.0 10^3/uL (4.8-10.8) 05/09/25 04:28
RBC 4.76 10^6/uL (4.20-5.40) 05/09/25 04:28
Hgb 15.1 g/dL (12.0-16.0) 05/09/25 04:28
Hct 44.9 % (37.0-47.0) 05/09/25 04:28
MCV 94.3 fL (81.0-99.0) 05/09/25 04:28
MCH 31.7 pg (27.0-31.0) H 05/09/25 04:28
MCHC 33.6 g/dL (33.0-37.0) 05/09/25 04:28
RDW 13.2 % (11.5-14.5) 05/09/25 04:28
Plt Count 218 10^3/uL (130-400) 05/09/25 04:28
MPV 9.6 fL (7.4-10.4) 05/09/25 04:28
Abs Immat Gran (auto) 0.0 10^3/uL (0-0.05) 05/09/25 04:28
Absolute Neuts (auto) 3.9 10^3/uL (1.4-6.5) 05/09/25 04:28
Absolute Lymphs (auto) 2.9 10^3/uL (1.2-3.4) 05/09/25 04:28
Absolute Monos (auto) 0.8 10^3/uL (0.1-0.6) H 05/09/25 04:28
Absolute Eos (auto) 0.3 10^3/uL (0-0.7) 05/09/25 04:28
Absolute Basos (auto) 0.1 10^3/uL (0-0.2) 05/09/25 04:28
Immature Gran % 0.3 % (0-0.5) 05/09/25 04:28
Neutrophils % 49.2 % (42.2-75.2) 05/09/25 04:28
Lymphocytes % 36.8 % (20.5-51.1) 05/09/25 04:28
Monocytes % 9.8 % (1.7-9.3) H 05/09/25 04:28
Eosinophils % 3.1 % (0-6) 05/09/25 04:28
Basophils % 0.8 % (0-2) 05/09/25 04:28
Creatinine 1.0 mg/dL (0.6-1.0) 05/09/25 04:28
Vital Signs
Vital Signs
Temp Pulse Resp BP Pulse Ox
97.5 F 110 19 98/63 98
05/09/25 05:38 05/09/25 10:30 05/09/25 10:30 05/09/25 10:30 05/09/25 10:30
--- NOTE | 2025-05-09 10:58 | CON.INTV ---
Consultation
Consultation Request
Date/Time Consultation Requested: 05/09/2025 - 1024
Date/Time Consultation Performed: 05/09/2025 - 1045
Requesting Provider: Dr. Mello
Performing Provider: Dr. Ramirez
Reason for Consultation: Rapid A-fib/Hypotension
Medical History
-
Chief Complaint: Lightheaded with low blood pressure
History of Present Illness:
69-year-old female former tobacco smoker with a past medical history of metastatic breast cancer with mets to brain and lung previously treated with mastectomy, XRT + chemotherapy with left lung wedge resection + thoracotomy, history of fungal
cavitation with RLL mass resection (2008), history of presumed retinal TIA, Hx of paroxysmal SVT, and right arm melanoma who presents with lightheadedness and hypotension. Patient woke up at approximately 3 AM prior to arrival and felt dizzy and
almost passed out. 911 called and her BP was 70/30 which improved to 100/54 with 800 cc of NS 0.9%. Patient found to be in atrial fibrillation which is new onset. In the ER she was found to be in A-fib with RVR with ventricular rate 110�130s,, BP
90/60 and saturating 98% on room air. She was afebrile to 97.8 �F. Labs significant for potassium 3.4, magnesium 2.4, glucose 92, creatinine 1, proBNP 443 and troponin negative at 0.012. Blood cultures were collected. CXR showed left basilar
opacification likely due to a small effusion with adjacent atelectasis/consolidation. CTA chest showed moderate cardiomegaly with severe left atrial enlargement with a new 1.9 cm enlarged right paratracheal lymph node, with a 2.6 cm pulmonary AVM
in the lingula, with radiation pneumonitis changes in the right lung apex, and lower lobe predominant mild�moderate subpleural scarring and subsegmental atelectasis and no evidence of an effusion or pneumothorax. In the ER she was given total of 3
L NS 0.9%. Cardiology and neurology have been consulted. CT head showed no acute intracranial abnormality and there was left frontal area of encephalomalacia due to prior resection of intracranial metastasis. Anticoagulation was started after our
cardiology team reached out to the patient's outsewer at [facility] (Dr. Mariscal). Patient then admitted to the ICU for close monitoring and Stringing Machine Operator services consulted for additional management/recommendations.
When I saw the patient, she was resting in bed in no acute distress, heart rate 119, BP 122/111 and saturating 94% on room air. She denies shortness of breath currently. Also has no prior history of COPD or asthma. She does admit that she has
been having worsening edema in her legs but believes that this was due to sclerotherapy in her legs this past February. The edema has been stable and not worsening over the last several days/weeks.
PMHx: Metastatic breast cancer with mets to the brain and lung, previously treated with mastectomy, XRT + chemotherapy (last treated in 2019), history of a presumed retinal TIA, paroxysmal SVT, right arm melanoma, former tobacco smoker, fungal
cavitation (aspergillus) with hemoptysis s/p right lower lobe mass resection (2008), varicose veins s/p sclerotherapy bilaterally
PSHx: Right sided mastectomy followed by MAGGI, left lung wedge resection, craniotomy of left frontal lobe (2007), RFA to lung (2007), left thoracotomy (2008)
Past Medical History
Past Medical History: Other (Above as per HPI)
Past Surgical History: Other (Above as per HPI)
Social History
Tobacco: Former Smoker (Smoked 2 PPD x 20 years, quit 1992)
Alcohol: Occasional
Drug: None
Living: Alone
Family History
Family History: Cancer (Mother: Breast cancer; maternal grandfather + brother: Prostate cancer) and Hypertension (Brother)
Allergies / Home Medications
Allergies
Allergy/AdvReac Type Severity Reaction Status Date / Time
No Known Allergies Allergy Unverified 05/09/25 04:17
Home Medications
�Medication �Instructions �Recorded �Confirmed �Last Taken �Type
ascorbic acid (vitamin C) 500 mg 500 mg PO DAILY Supplement 05/09/25 05/09/25 05/08/25 History
tablet (Vitamin C)
aspirin 81 mg tablet 81 mg PO DAILY Heart 05/09/25 05/09/25 05/08/25 History
Disease/Condition
atorvastatin 10 mg tablet 5 mg PO HS High Cholesterol 05/09/25 05/09/25 05/08/25 History
cholecalciferol (vitamin D3) 50 50 mcg PO DAILY Supplement 05/09/25 05/09/25 05/08/25 History
mcg (2,000 unit) tablet (Vitamin
D3)
coenzyme Q10 100 mg capsule 200 mg PO DAILY High Cholesterol 05/09/25 05/09/25 05/08/25 History
(CoQ-10)
cyanocobalamin (vitamin B-12) 1,000 mcg PO DAILY Supplement 05/09/25 05/09/25 05/08/25 History
1,000 mcg tablet (Vitamin B-12)
dapagliflozin propanediol 10 mg 10 mg PO DAILY Heart Failure 05/09/25 05/09/25 05/08/25 History
tablet (Farxiga)
eplerenone 25 mg tablet 25 mg PO DAILY Fluid 05/09/25 05/09/25 05/08/25 History
Retention/Swelling
metoprolol succinate 25 mg 25 mg PO BID Arrhythmia 05/09/25 05/09/25 05/08/25 History
tablet,extended release 24 hr
psyllium 1 packet PO DAILY Constipation 05/09/25 05/09/25 05/08/25 History
sacubitril 24 mg-valsartan 26 mg 1 tab PO BID Blood Pressure 05/09/25 05/09/25 05/08/25 History
tablet (Entresto)
Review of Systems
-
History Source: Patient
All other systems: Negative unless noted
Vitals / Labs / Diagnostic Testing
Vital Signs
Temp Pulse Resp BP Pulse Ox
98.3 F 73 22 102/73 93
05/09/25 15:00 05/09/25 17:30 05/09/25 17:30 05/09/25 17:00 05/09/25 16:00
Lab Data
05/09/25 11:04
05/09/25 04:28
Laboratory Results
05/09/25 05/09/25
11:04 17:05
PT 13.4
INR 0.97
APTT 25.2 48.0 H
Diagnostic Testing:
Physical Exam
-
HEENT: Normocephalic, Anicteric and Moist Mucous Membranes
Cardiovascular: Irregular Rhythm (Irregularly irregular), Peripheral Edema (Trace lower extremity edema bilaterally) and Other (Tachycardic)
Respiratory: Clear, Wheeze (negative), Rales (negative) and Rhonchi (negative)
GI: Soft, Non Distended, Non Tender and Normal Bowel Sounds
Neurology: AO x 3 and Tremors (negative)
Skin: Warm and Dry
General: Respiratory Distress (negative), Comfortable, Fever (negative), Chills (negative) and Other (pleasant mood)
Assessment
-
Assessment: 69-year-old female former tobacco smoker with a past medical history of metastatic breast cancer with mets to brain and lung previously treated with mastectomy, XRT + chemotherapy with left lung wedge resection + thoracotomy, history of
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 Patient woke up at approximately 3 AM prior to arrival and felt dizzy
and almost passed out. 911 called and her BP was 70/30 which improved to 100/54 with 800 cc of NS 0.9%. Patient found to be in atrial fibrillation which is new onset. In the ER she was found to be in A-fib with RVR with ventricular rate
110�130s,, BP 90/60 and saturating 98% on room air. She was afebrile to 97.8 �F. Labs significant for potassium 3.4, magnesium 2.4, glucose 92, creatinine 1, proBNP 443 and troponin negative at 0.012. Blood cultures were collected. CXR showed
left basilar opacification likely due to a small effusion with adjacent atelectasis/consolidation. CTA chest showed moderate cardiomegaly with severe left atrial enlargement with a new 1.9 cm enlarged right paratracheal lymph node, with a 2.6 cm
pulmonary AVM in the lingula, with radiation pneumonitis changes in the right lung apex, and lower lobe predominant mild�moderate subpleural scarring and subsegmental atelectasis and no evidence of an effusion or pneumothorax. In the ER she was
given total of 3 L NS 0.9%. Cardiology and neurology have been consulted. CT head showed no acute intracranial abnormality and there was left frontal area of encephalomalacia due to prior resection of intracranial metastasis. Anticoagulation was
started after our cardiology team reached out to the patient's outsewer at [facility] (Dr. Mariscal). Patient then admitted to the ICU for close monitoring and Stringing Machine Operator services consulted for additional management/recommendations.
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
craniotomy and followed by RT (completed in October 2008), history of a presumed retinal TIA, paroxysmal SVT, right arm melanoma, former tobacco smoker, fungal cavitation (aspergillus) with hemoptysis s/p right lower lobe mass resection (2008),
lower extremity varicose veins s/p sclerotherapy (February 2025)
Impression:
#New onset atrial fibrillation with RVR
#Hypotension due to above
#Hypokalemia (mild)
#History of paroxysmal SVT
#Valvular heart disease with moderate TR and mild MR (per TTE from 05/09/2025)
#Chronic HFpEF (follows with Dr. Arabella Mariscal at [facility])
#History of metastatic breast cancer (diagnosed 2002) s/p mastectomy, chemo/XRT c/b RUL radiation pneumonitis with mets to brain s/p craniotomy/XRT (completed 10/2008) and mets to lung (s/p DANA wedge resection)
#Pulmonary AVM in lingula (2.6cm)
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
#Lower extremity varicose veins s/p sclerotherapy (February 2025)
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
#History of paroxysmal SVT
#Former tobacco smoker with [id number]-[id number] history, quit 1992
#Right-sided paratracheal lymphadenopathy
Plan:
- Patient admitted to the ICU for closer monitoring given her hypotension with A-fib with RVR as well as systemic anticoagulation with heparin drip in the setting of prior brain mets s/p craniotomy/XRT
- Her outsewer, Dr. Lance, reached out to the patient's outsewer, Dr. Arabella Mariscal, and decision made to start anticoagulation, which was also reviewed by the patient's neuro oncologist
- We should be doing neurochecks at least for today/tonight while patient is in ICU, and if there is any acute change in mental status then a stat CT head should be done with notification to neurologist if any acute LONGITUDINAL FLOAT OPERATOR-abnormality is discovered
- Neurology consulted and recommendations appreciated
- Rate control is samson with goal HR <110 and she is currently having labile heart rate between 90s�110s, although earlier in the day was 110s-130s
- Replete K>4, Mg>2
- Cardiology on board and recommendations appreciated
- Anticoagulation started with IV heparin; if patient does not spontaneously convert today then will consider CHERYLE with cardioversion tomorrow, per cardiology
- Maintain SpO2 >90-94%
- Continue aspiration precautions
- prn nebulized bronchodilators - not currently bronchospastic
- Incentive spirometer encouraged 10x per hour for at least 4 hrs a day
- She has an enlarged station 4R lymph node; unable to appreciate if this lymph node was enlarged on prior CT chest imaging from 2021, which I personally reviewed. This should be followed as an outpatient to assess for persistence, and if there is
no decrease in size then would offer EBUS�FNA via bronchoscopy; she can get this done through [facility] if she wishes as seems like majority of her doctors are located there, or she can continue to have this monitored with us at [facility]
- Maintain MAP>65
- Hold patient's home antihypertensives for now
- Cautiously continue with crystalloids with NS 0.9% at 100 cc/hr, however if patient starts to develop shortness of breath, acute cough, or worsening hypoxia then fluid should be stopped immediately with CXR check to assess for acute pulmonary
edema; I will put a stop date on the fluids for now to assure we are reassessing the need for IV fluids daily
- Maintain euglycemia with goal BG 140-180
- Trend H/H and transfuse if needed to keep Hb>7g/dL; keep plt>20k, unless there is concern for bleeding then keep plt>50k
- DVT ppx: heparin gtt
Code status: DNR/DNI
Continue ICU level of care. Stringing Machine Operator services will continue to follow along.
Data:
CT head 05/09/2025:
1. No acute intracranial abnormality identified.
2. Left frontal area of encephalomalacia related to previous resection of intracranial metastasis.
CTA chest 05/09/2025:
1. MODERATE CARDIOMEGALY with SEVERE LEFT ATRIAL ENLARGEMENT.
2. New 1.9 cm enlarged right upper paratracheal lymph node.
3. Previous left upper lobe pulmonary wedge resection with associated scarring.
4. Moderate elevation of the left hemidiaphragm secondary to left lung volume loss.
5. 2.6 cm PULMONARY ARTERIOVENOUS MALFORMATION in the lingula.
6. Mild radiation pneumonitis in the right lung apex.
7. Mild to moderate subpleural scarring and subsegmental atelectasis in the lower lobes.
8. Previous right breast mastectomy.
9. Multiple chronic left posterior rib osteotomies.
10. Severe discogenic degenerative disease in the thoracolumbar junction.
Transthoracic echocardiogram 05/09/2025:
Normal left ventricular size, wall thickness and systolic function.
LV ejection fraction is 60-65% .
Mild mitral regurgitation.
Moderate tricuspid regurgitation
Compared to previous report 08/03/2024 moderate tricuspid regurgitation is
present. Previously mild
Total time spent today was 79 minutes for this encounter. Time includes reviewing laboratory test/imaging results, reviewing pertinent medical records, obtaining and reviewing medical history, performing an appropriate exam, ordering medications,
tests and procedures. Time also includes documentation of this encounter, coordinating patient care and communicating with other healthcare professionals. Total time does not include separately billed tests performed on this date of service.
[2025-05-09 11:14] LABS: Hematocrit 41.7 % (37.0-47.0); Mean Corp Hgb Conc. 33.6 g/dL (33.0-37.0); Mean Corpuscular Hgb 31.7 pg (27.0-31.0); Mean Corpuscular Volume 94.6 fL (81.0-99.0); Mean Platelet Volume 9.7 fL (7.4-10.4); Platelet Count 209 10^3/uL (130-400); Red Blood Cell Count 4.41 10^6/uL (4.20-5.40); Red Cell Dist. Width 13.2 % (11.5-14.5); White Blood Cell Count 7.1 10^3/uL (4.8-10.8)
[2025-05-09] MEDS: HEPARIN 25000 UNITS/250 ML IV (11:14)
--- NOTE | 2025-05-09 11:17 | CM ---
CM reviewed chart and met with pt bedside in ED.
Pt lives alone in 3rd floor apt, building has elevator, no SALVATORE
[facility], still drives
No DME in home, no hx VN or SNF
PCP: Shefali Gordon
Pharmacy: [facility]
Plan: Anticipate home pending ongoing medical evaluation, watch for needs
--- NOTE | 2025-05-09 11:21 | EDRN ---
this RN called verbal report to Daisy, this RN rajani PTT and initiated Heparin gtt at 800units/hour
[2025-05-09 11:26] LABS: APTT 25.2 Sec (23.4-35.0)
--- NOTE | 2025-05-09 12:00 | PTCARENOTE ---
Pt rec'd from ED RN Nery, admitted to ICU room 3358, oriented to room and plan of care. Heparin gtt and IVF infusing as ordered. Pt remains in afib on tele, rates 80-130s, pt asymptomatic. BPs WNL. Pt assisted to use beside commode for BM and
urine. Pt Aox3, pleasant conversant and cooperative, no pain, verbalized understanding of plan, using call shipman appropriatly. Admission and assessment completed, Dr. Ramirez in room to assess patient. Safe environment maintained.
[2025-05-09 14:18] LABS: INR 0.97; PT 13.4 Sec (11.4-14.6)
--- NOTE | 2025-05-09 14:31 | PTCARENOTE ---
Pt noted to be in sinus rhythm on tele HR in 70s. ECG obtained and confirmed, MDs notified. Pt updated.
[2025-05-09 14:35] LABS: Magnesium 2.4 mg/dl (1.6-2.3); Phosphorus 3.8 mg/dl (2.5-4.5)
--- NOTE | 2025-05-09 20:30 | PTCARENOTE ---
rec'd patient OOB in chair. offers no complaints at this time, denies SOB/CP. currently SR on monitor, HR in 80s. on RA. supervision to BR. heparin and IVF continue. repeat BMP sent. pt back in bed at this time. questions answered. call shipman in
reach.
[2025-05-09 21:07] LABS: Blood Urea Nitrogen 21 mg/dl (7-17); Carbon Dioxide 21 mmol/L (22-30); Chloride 116 mmol/L (98-107); Estimated Creatinine Clearance 60 ml/min; Glucose 112 mg/dl (70-99); Magnesium 2.2 mg/dl (1.6-2.3); Potassium 4.3 mmol/L (3.5-5.1); Sodium 142 mmol/L (135-145); eGFR > 60.00
[2025-05-09] MEDS: LR 1000 IV (22:43)
[2025-05-10] VITALS (14 sets, daily range): BP systolic 115–153; BP diastolic 62–93; BMI 22.0
--- NOTE | 2025-05-10 00:11 | PTCARENOTE ---
pt reassessed. OOB to BR, hygiene done. heparin gtt continues, IVF switched to LR. pt remains in SR. call shipman in reach.
[2025-05-10 00:13] LABS: APTT 71.3 Sec (23.4-35.0)
[2025-05-10] MEDS: ANESTHETIC LOZENGE 1 LOZENGE PO (01:43)
[2025-05-10] MEDS: DUONEB 3 ML INH (01:51)
--- NOTE | 2025-05-10 01:53 | PTCARENOTE ---
Addendum entered by Shirley Hernandez RN 05/10/25 03:06:
pt remains anxious and c/o SOB, ICU CLIENT COORDINATOR to bedside. stat CXR ordered and taken. ICU CLIENT COORDINATOR reviewed image and discussed with pt increase in congestion noted. lasix ordered and ICU CLIENT COORDINATOR to bedside to discuss with pt, pt refusing lasix dose. maintenance IVF
turned off at this time. PRN ativan also offered to patient to help ease anxiety as she verbalized she was anxious and that 'this is all new'. pt refused ativan dose. attempted to get AM labs, pt refusing at this time. pt remains in SR and on room
air. call shipman in reach.
Addendum entered by Shirley Hernandez RN 05/10/25 02:20:
EKG done, NSR with occasional PVCs. lozenge provided. remains on RA. neb treatment finished, wheezing improved but remains slightly on R side.
Original Note:
pt rang call shipman c/o new dry cough, chest tightness, slight SOB. upon assessment, O2 sat on RA 93-96%. new exp wheezing noted. pt remains in SR, HR 80s. ICU CLIENT COORDINATOR made aware, nebs and lozenges ordered. RT at bedside administering neb at this time.
care ongoing.
--- NOTE | 2025-05-10 03:21 | W.PN.UPDATE ---
Addendum entered and electronically signed by MICHAEL Lynn 05/10/25 05:06:
0500 ProBNP was 443 on 05/09 on 1410 on 05/10. Patient voided 700ml/hr @ 0500, symptoms improved.
Addendum entered and electronically signed by MICHAEL Lynn 05/10/25 04:15:
0415 Patient agreed to take lasix.
Original Note:
Update Note
Progress Note Update
0130. Notified by nurse that patient was complaining of increased shortness of breath and the nurse on assessment noted increased wheezing. Vitals: RR 18 to 24, O2 sat on room air was 95%. ��DuoNeb ordered. Also, patient was complaining of sore
throat and throat lozenge�ordered. �Slight�improvement with breathing with nebs. Chest X-ray then ordered to rule out pulmonary edema. All fluids have been stopped. Noted on chest X-ray, the patient had increased pulmonary edema. Ordered 20mg of
Lasix and explained to the patient the findings and the reason why we wanted to give Lasix. �Patient refused to have the Lasix because she wanted time to think about it. Currently patients 02 sat is�96% on room air with respirations or 18 to 22.
�Instructed patient to let us know if she changes her mind. �
[2025-05-10] MEDS: LASIX 20 MG IV (04:04)
[2025-05-10 04:22] LABS: Hematocrit 41.8 % (37.0-47.0); Hemoglobin 13.8 g/dL (12.0-16.0); Mean Corpuscular Hgb 31.4 pg (27.0-31.0); Mean Platelet Volume 9.8 fL (7.4-10.4); Platelet Count 204 10^3/uL (130-400); Red Cell Dist. Width 13.3 % (11.5-14.5); White Blood Cell Count 10.9 10^3/uL (4.8-10.8)
[2025-05-10 04:40] LABS: APTT 97.3 Sec (23.4-35.0)
--- NOTE | 2025-05-10 04:40 | PTCARENOTE ---
had therapeutic conversation with patient, O2 sat 89-90%, pt agreed to take lasix dose, see MAR. pt also agreed to have AM labs drawn at this time. verbalizes she does not want a PRN dose of ativan. assisted OOB to BR. call shipman in reach.
[2025-05-10 04:53] LABS: NT-proBNP 1410 pg/ml
[2025-05-10 05:05] LABS: Blood Urea Nitrogen 17 mg/dl (7-17); Calcium 9.3 mg/dl (8.4-10.2); Carbon Dioxide 20 mmol/L (22-30); Chloride 116 mmol/L (98-107); Estimated Creatinine Clearance 69 ml/min; Glucose 105 mg/dl (70-99); Magnesium 2.2 mg/dl (1.6-2.3); Potassium 3.8 mmol/L (3.5-5.1); Sodium 144 mmol/L (135-145); eGFR > 60.00
--- NOTE | 2025-05-10 08:12 | W.PN.CD ---
Today's Communication / Plan
-
start farxiga, mra, bb tonight
start amiodarone 400mg iv bid x 14 days then 200mg daily
resume entresto in am if bp stable otherwise as op with typical cardiology
follow up with typical cardiology team
Impression / Plan
-
Light-headedness:
-improved
-s/p IVF
Hypotension:
-seems linked to arrhythmia
AFIB, type and onset unknown, but by symptoms sounds like started overnight:
-back in sinus
-QTC >440m/s, given hypotension with arrrhythmia, will start amiodarone as a bridge to ablation
-start amiodarone 400mg po bid x14 days then 200mg daily
-Brief PAF noted in the past per OP chart. Brief episodes of SVT reports, and one clear episode of afib for 18 seconds per chart. However, OAC was not initiated at that time.
-[id number] score is at least 5 for age, female, CHF, TIA. D/w Neurosurg, ok for DOAC will transition to Eliquis.
HFpEF:
-Overnight she felt more sob, cxr looks c/w mild pulm edema.
-she responded to low dose lasix
-will resume SGLT2 i, MRA, bb tonight, can resume entresto as op or in am if bp stable
Hypokalemia:
-replace and monitor
Hx breast ca with mets lung and brain:
-follows as OP
Subjective;anxious and wheezing overnight, now improved
Data:
TTE 05/09/25:CONCLUSIONS
Normal left ventricular size, wall thickness and systolic function.
LV ejection fraction is 60-65% .
Mild mitral regurgitation.
Moderate tricuspid regurgitation
Compared to previous report 08/03/2024 moderate tricuspid regurgitation is
present. Previously mild
CT Scan chest 05/09/25: MODERATE CARDIOMEGALY with SEVERE LEFT ATRIAL ENLARGEMENT. New 1.9 cm enlarged right upper paratracheal lymph node. Previous left upper lobe pulmonary wedge resection with associated scarring. Moderate elevation of the left
hemidiaphragm secondary to left lung volume loss. 2.6 cm PULMONARY ARTERIOVENOUS MALFORMATION in the lingula. Mild radiation pneumonitis in the right lung apex. Mild to moderate subpleural scarring and subsegmental atelectasis in the lower lobes.
Previous right breast mastectomy. Multiple chronic left posterior rib osteotomies. Severe discogenic degenerative disease in the thoracolumbar junction.
Physical Exam
Vital Signs/Labs
Vital Signs
Temp Pulse Resp BP Pulse Ox
99.5 F 89 20 123/62 96
05/10/25 07:16 05/10/25 05:30 05/10/25 05:30 05/10/25 06:00 05/10/25 05:30
05/09/25 05/10/25 05/11/25
06:59 06:59 06:59
Actual Weight 149 lb 4.047 oz 136 lb 3.931 oz
05/10/25 04:10
05/10/25 04:10
PT 13.4 Sec (11.4-14.6) 05/09/25 11:04
INR 0.97 05/09/25 11:04
APTT 97.3 Sec (23.4-35.0) H 05/10/25 04:10
Magnesium 2.2 mg/dl (1.6-2.3) 05/10/25 04:10
05/09/25 05/10/25
04:28 04:10
Qhe-G-[id number] Pept 443 1410
LAB Results
05/09/25
04:28
Troponin I 0.012
Physical Exam
Constitutional: No acute distress
Cardiovascular: Rhythm & rate is regular, Pedal edema is absent, JVD pressure is normal, Systolic murmur absent and Diastolic murmur absent
Respiratory: Respiratory effort normal and Crackles Present (at the right base)
GI: Soft
Neuro/Psych: AO x 3
Data Reviewed
-
Date of Service: May 10, 2025
Medical Decision Making: Review of Case with other Provider (Dr mcintosh---starting back meds, starting amio)
EKG: Other (tele with brief psvt )
--- NOTE | 2025-05-10 08:20 | W.PN.INTV ---
Today's Communication / Plan
Recommendations
Pt stable for downgrade out of ICU to tele
Give additional lasix tomorrow
Strict I/O
Recheck CXR tomorrow
Pulmonary service will continue to briefly follow along
Assessment
-
Assessment: 69-year-old female former tobacco smoker with a past medical history of metastatic breast cancer with mets to brain and lung previously treated with mastectomy, XRT + chemotherapy with left lung wedge resection + thoracotomy, history of
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 Patient woke up at approximately 3 AM prior to arrival and felt dizzy
and almost passed out. 911 called and her BP was 70/30 which improved to 100/54 with 800 cc of NS 0.9%. Patient found to be in atrial fibrillation which is new onset. In the ER she was found to be in A-fib with RVR with ventricular rate
110�130s,, BP 90/60 and saturating 98% on room air. She was afebrile to 97.8 �F. Labs significant for potassium 3.4, magnesium 2.4, glucose 92, creatinine 1, proBNP 443 and troponin negative at 0.012. Blood cultures were collected. CXR showed
left basilar opacification likely due to a small effusion with adjacent atelectasis/consolidation. CTA chest showed moderate cardiomegaly with severe left atrial enlargement with a new 1.9 cm enlarged right paratracheal lymph node, with a 2.6 cm
pulmonary AVM in the lingula, with radiation pneumonitis changes in the right lung apex, and lower lobe predominant mild�moderate subpleural scarring and subsegmental atelectasis and no evidence of an effusion or pneumothorax. In the ER she was
given total of 3 L NS 0.9%. Cardiology and neurology have been consulted. CT head showed no acute intracranial abnormality and there was left frontal area of encephalomalacia due to prior resection of intracranial metastasis. Anticoagulation was
started after our cardiology team reached out to the patient's intermediate project manager at [place] (Dr. Mariscal). Patient then admitted to the ICU for close monitoring and [employer] [facility] consulted for additional management/recommendations.
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
craniotomy and followed by RT (completed in October 2008), history of a presumed retinal TIA, paroxysmal SVT, right arm melanoma, former tobacco smoker, fungal cavitation (aspergillus) with hemoptysis s/p right lower lobe mass resection (2008),
lower extremity varicose veins s/p sclerotherapy (February 2025)
Impression:
#New onset atrial fibrillation with RVR now in NSR since 05/09
#Hypotension due to above � now normotensive
#Hypokalemia (mild) � resolved
#History of paroxysmal SVT
#Valvular heart disease with moderate TR and mild MR (per TTE from 05/09/2025)
#Acute on chronic HFpEF (follows with Dr. Arabella Mariscal at [place])
#History of metastatic breast cancer (diagnosed 2002) s/p mastectomy, chemo/XRT c/b RUL radiation pneumonitis with mets to brain s/p craniotomy/XRT (completed 10/2008) and mets to lung (s/p DANA wedge resection)
#Pulmonary AVM in lingula (2.6cm)
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
#Lower extremity varicose veins s/p sclerotherapy (February 2025)
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
#History of paroxysmal SVT
#Former tobacco smoker with [id number] history, quit 1992
#Right-sided paratracheal lymphadenopathy
Plan:
- Patient admitted to the ICU for closer monitoring given her hypotension with A-fib with RVR as well as systemic anticoagulation with heparin drip in the setting of prior brain mets s/p craniotomy/XRT
- Her intermediate project manager, Dr. Lance, reached out to the patient's intermediate project manager, Dr. Arabella Mariscal, and decision made to start anticoagulation, which was also reviewed by the patient's neuro oncologist
- If there is any acute change in mental status then a stat CT head should be done with notification to neurologist
- Neurology consulted and recommendations appreciated
- Patient converted into NSR on the afternoon of 05/09, and has remained in NSR
- Starting PO amio load today per cardiology; she has remained in NSR since afternoon of 05/09
- Continue BB
- Replete K>4, Mg>2
- Cardiology on board and recommendations appreciated
- Yesterday anticoagulation started with IV heparin - -> now on Eliquis and off heparin gtt.
- Maintain SpO2 >90-94%
- Continue aspiration precautions
- prn nebulized bronchodilators - not currently bronchospastic
- Incentive spirometer encouraged 10x per hour for at least 4 hrs a day
- She has an enlarged station 4R lymph node; unable to appreciate if this lymph node was enlarged on prior CT chest imaging from 2021, which I personally reviewed. This should be followed as an outpatient to assess for persistence, and if there is
no decrease in size then would offer EBUS�FNA via bronchoscopy; she can get this done through [place] if she wishes as seems like majority of her doctors are located there, or she can continue to have this monitored with us at [facility]
- Maintain MAP>65
- Slowly resume patient's antihypertensive medications
- Pt now off IVF, given lasix overnight. Continue to monitor volume status daily to assess if additional lasix is needed.
- Maintain euglycemia with goal BG 140-180
- Trend H/H and transfuse if needed to keep Hb>7g/dL; keep plt>20k, unless there is concern for bleeding then keep plt>50k
- DVT ppx: Eliquis
Code status: DNR/DNI
Patient is stable for downgrade out of ICU to telemetry. Pulmonary services will continue to briefly follow along.
Data:
CT head 05/09/2025:
1. No acute intracranial abnormality identified.
2. Left frontal area of encephalomalacia related to previous resection of intracranial metastasis.
CTA chest 05/09/2025:
1. MODERATE CARDIOMEGALY with SEVERE LEFT ATRIAL ENLARGEMENT.
2. New 1.9 cm enlarged right upper paratracheal lymph node.
3. Previous left upper lobe pulmonary wedge resection with associated scarring.
4. Moderate elevation of the left hemidiaphragm secondary to left lung volume loss.
5. 2.6 cm PULMONARY ARTERIOVENOUS MALFORMATION in the lingula.
6. Mild radiation pneumonitis in the right lung apex.
7. Mild to moderate subpleural scarring and subsegmental atelectasis in the lower lobes.
8. Previous right breast mastectomy.
9. Multiple chronic left posterior rib osteotomies.
10. Severe discogenic degenerative disease in the thoracolumbar junction.
Transthoracic echocardiogram 05/09/2025:
Normal left ventricular size, wall thickness and systolic function.
LV ejection fraction is 60-65% .
Mild mitral regurgitation.
Moderate tricuspid regurgitation
Compared to previous report 08/03/2024 moderate tricuspid regurgitation is
present. Previously mild
Total time spent today was 39 minutes for this encounter. Time includes reviewing laboratory test/imaging results, reviewing pertinent medical records, obtaining and reviewing medical history, performing an appropriate exam, ordering medications,
tests and procedures. Time also includes documentation of this encounter, coordinating patient care and communicating with other healthcare professionals. Total time does not include separately billed tests performed on this date of service.
Subjective Dataa
Subjective Data
Date of Service:
Date of Service: May 10, 2025
Chief Complaint: [employer] Follow Up
Subjective:
Patient was seen and evaluated this morning. Doing well. Remains in NSR since yesterday late afternoon. Current heart rate 85, BP 122/71 and saturating 94% on room air. She did have shortness of breath overnight which improved with Lasix. She
currently feels well with no shortness of breath at rest although she does get short of breath when she lays down flat. Currently denies chest pain, BOSWELL, nausea, fevers chills
Review of Systems
General: Other (Negative unless mentioned above)
Objective Data
Data Reviewed
Vital Signs / I&O / Oxygen:
Vital Signs
Temp Pulse Resp BP Pulse Ox
99.5 F 84 19 125/70 94
05/10/25 07:16 05/10/25 09:38 05/10/25 08:36 05/10/25 09:38 05/10/25 08:36
Intake and Output
05/09/25 05/10/25 05/11/25
06:59 06:59 06:59
Intake Total 2356 / 2367 33 / 33
Output Total 950 / 1650 700 / 700
Balance 1406 / 717 -667 / -667
SaO2 94
Physical Exam
General: Respiratory Distress (negative), Comfortable, Chills (negative) and Sweats (negative)
HEENT: Normocephalic and Anicteric
Cardiovascular: S1-S2 and Peripheral Edema (negative)
Respiratory: Wheeze (negative), Crackles (Bibasilar), Rhonchi (negative) and Non-Labored Respirations
GI: Soft, Non Distended, Non Tender and Normal Bowel Sounds
Neurology: Awake, Alert and Tremors (negative)
Skin: Warm, Dry, Cyanosis (negative) and Jaundice (negative)
Labs/Micro/Reports
Lab Data
05/10/25 04:10
05/10/25 04:10
Laboratory Results
05/09/25 05/09/25 05/09/25
11:04 17:05 23:35
PT 13.4
INR 0.97
APTT 25.2 48.0 H 71.3 H
05/10/25
04:10
PT
INR
APTT 97.3 H
Microbiology
05/09/25 09:15 Blood/Venous Blood Culture - Preliminary
No Growth in 24 hours- Final report to follow
[2025-05-10] MEDS: PROTONIX IV 40 MG IV (08:34)
[2025-05-10] MEDS: KCL 20 MEQ PO (08:34)
--- NOTE | 2025-05-10 09:22 | W.PN.HOSP.TC ---
Today's Communication/Plan
-
see A/P
downgrade to tele
Assessment / Plan
Assessment / Plan
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
melanoma; p/w dizziness and lightheadedness. Her symptoms began around 2:30-3:00 AM when the patient tried to get out of bed. She noted a significant drop in her blood pressure, with home measurements showing 70/50 mmHg.
She denies to other symptoms such as CP, SOB, abd pain, change in BM etc.
In the ED, she was found to be in atrial fibrillation with rapid ventricular response, and low blood pressure. BP slightly improved following IVF but trended down again.
CT PE:
1. MODERATE CARDIOMEGALY with SEVERE LEFT ATRIAL ENLARGEMENT.
2. New 1.9 cm enlarged right upper paratracheal lymph node.
3. Previous left upper lobe pulmonary wedge resection with associated scarring.
4. Moderate elevation of the left hemidiaphragm secondary to left lung volume loss.
5. 2.6 cm PULMONARY ARTERIOVENOUS MALFORMATION in the lingula.
6. Mild radiation pneumonitis in the right lung apex.
7. Mild to moderate subpleural scarring and subsegmental atelectasis in the lower lobes.
8. Previous right breast mastectomy.
9. Multiple chronic left posterior rib osteotomies.
10. Severe discogenic degenerative disease in the thoracolumbar junction.
A/P:
# New onset Atrial fibrillation with rapid ventricular response, spontaneously converted to NSR
# Hypotension likely related to A fib, resolved
# Dizziness and lightheadedness, due to above
# h/o Paroxysmal supraventricular tachycardia
s/p IVF, now off
echo: EF 60-65%. Mild mitral regurgitation. Moderate tricuspid regurgitation. Compared to previous report 08/03/2024 moderate tricuspid regurgitation is present. Previously mild
Card on board
resumed farxiga, Toprol 25 mg BID, Eplerenone 25 mg daily,
added amiodarone 400mg iv bid x 14 days then 200mg daily
To resume entresto if BP stable otherwise as op with typical cardiology
Started Eliquis
follow up with typical cardiology team
Other medical conditions:
# Metastatic breast cancer to brain and lung, previously treated with surgery and medical therapy, last treatment 2019
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
DVT ppx: Eliquis
Code status: DNR DNI, confirmed with pt
DW Cardiology
DW RN
Anticipated Discharge: Within 24 hours
Subjective/Interval History
-
Date of Service: May 10, 2025
Objective Data
-
Labs:
Laboratory Results
05/09/25 05/10/25 05/10/25
23:35 04:10 11:00
WBC 10.9 H
Hgb 13.8
Hct 41.8
Plt Count 204
APTT 71.3 H 97.3 H Pending
Sodium 144
Potassium 3.8
Chloride 116 H
Carbon Dioxide 20 L
BUN 17
Creatinine 0.7
Glucose 105 H
Calcium 9.3
Vital Signs:
Vital Signs
Temp Pulse Resp BP Pulse Ox
37.5 C 92 19 125/70 94
05/10/25 07:16 05/10/25 08:36 05/10/25 08:36 05/10/25 08:36 05/10/25 08:36
I&O
05/09/25 05/10/25 05/11/25
06:59 06:59 06:59
Intake Total 2356 / 2367 33 / 33
Output Total 950 / 1650 700 / 700
Balance 1406 / 717 -667 / -667
Review of Systems
-
History Source: Patient
All other systems: Reviewed and negative
Physical Exam
-
General: Well Developed, Well Nourished, No Apparent Distress, Comfortable and Conversant; Negative Respiratory Distress
HEENT: Normocephalic, Atraumatic, Nose Appears Normal and Ears Appear Normal; Negative Oxygen
Respiratory: Clear to Auscultation and Non Labored Respirations; Negative Accessory Resp Muscle Use
Cardiac: Regular Rhythm and S1/S2
GI: Soft, Nontender, Nondistended and Normal Bowel Sounds
Skin: Warm and Dry
Neuro: Awake, Alert, Oriented and AO x 3
Psych: Calm and Intact Judgement/Insight
Data Reviewed
-
Medical Tests (Nuc Med, Echo etc): Report Reviewed by me (echo)
Labs: Labs Reviewed by me
--- NOTE | 2025-05-10 09:28 | PTCARENOTE ---
Pt was rec'd from night RN 07:15, reviewed overnight events, plan of care discussed. pt remains AOx3, no pain, sats stable on room air, remains in SR with PVCs noted. PO Potassium given as ordered. BPs remain WNL. Pt voiding clear yellow urine in
bathroom s/p lasix administration. Pt assisted oob to chair. Plan discussed with cardiology- Dr. Torres placed orders for Amiodarone PO, resumed home meds. Pt verbalized understanding of plan of care. Pt with call shipman in reach, breakfast
ordered. Dr. Mello placed order for telemetry level of care. Safe environment maintained.
[2025-05-10] MEDS: PACERONE 400 MG PO ×2 (09:38→20:27)
[2025-05-10] MEDS: ELIQUIS 5 MG PO ×2 (09:38→20:27)
[2025-05-10] MEDS: FARXIGA 10 MG PO (09:38)
[2025-05-10] MEDS: INSPRA 25 MG PO (09:44)
--- NOTE | 2025-05-10 10:04 | PN.CDI ---
CDI
- -
CDI:
Physician Documentation Request
Admit Date: 05/09/25 09:51
Dear Melissa,
Clinical Indicators:
Patient admitted with new onset atrial fibrillation.
PMH includes hx of HFpEF; Home medications include Entresto, Farxiga
05/10 Cardiology PN, 'HFpEF:-Overnight she felt more sob, cxr looks c/w mild pulm edema.'
Lasix 20 mg IV x 1 dose
BNP:
05/10/25
04:10
[id number] Pept 1410
Please provide further specificity regarding the most likely acuity of CHF you are evaluating, treating or monitoring.
Acute on chronic HFpEF
Acute HFpEF
Other, please specify
Use of terms such as suspected, likely, concern for, or probable (associated with a specific diagnosis that is being evaluated, monitored, or treated as if it exists) are acceptable and can be coded in the inpatient setting, when documented at the
time of discharge.
Thank you,
SYED Aburto RN
CDI Specialist
available via tiger text
Please use your independent medical judgment in providing your response.
--- NOTE | 2025-05-10 12:40 | PTCARENOTE ---
Pt resting when undisturbed, assessment unchanged. Remains in SR.
--- NOTE | 2025-05-10 13:01 | W.PN.ONC ---
Documented by User: Kristin Potter MD, Resident 05/10/25 13:09
Today's Communication / Plan
-
No contraindication to anticoagulants- we will sign off
Impression
Impression
We have been consulted to evaluate the risk-benefit of starting anticoagulation giving her past medical history of brain mets+ craniotomy.
A/P:
#A-fib
-Head CT does not show any acute intracranial abnormality
-Most recent systemic therapy Herceptin which is discontinued years ago. She has been on CT and MRI surveillance. She reports negative studies in the last 8 weeks. No overt contraindication to anticoagulation for atrial fibrillation with RVR.
-Cont Eliquis 5mg BID
# Hypotension
-Resolved-CT preliminary without evidence of acute PE
-Echocardiogram shows EF 60 to 65%
-Hypotension could be in the setting of A-fib
-Management per primary team
Thank you very much for this consult. There are no further inpatient heme-onc indications to follow patient. We will sign off. Please contact our office if any further questions.
Plan
Plan
We will sign off
Subjective/Objective
Subjective/Objective
Vital Signs:
Vital Signs
Temp Pulse Resp BP Pulse Ox
98.5 F 78 15 126/76 94
05/10/25 12:13 05/10/25 12:30 05/10/25 10:00 05/10/25 12:00 05/10/25 12:30
Lab Results:
Laboratory Data
WBC 10.9 10^3/uL (4.8-10.8) H 05/10/25 04:10
Hgb 13.8 g/dL (12.0-16.0) 05/10/25 04:10
Plt Count 204 10^3/uL (130-400) 05/10/25 04:10
PT 13.4 Sec (11.4-14.6) 05/09/25 11:04
INR 0.97 05/09/25 11:04
APTT Cancelled 05/10/25 11:00
eGFR > 60.00 05/10/25 04:10

Documented by User: MICHAEL Winter 05/10/25 14:56
Impression
Impression
We have been consulted to evaluate the risk-benefit of starting anticoagulation giving her past medical history of brain mets+ craniotomy.
A/P:
#A-fib
-Head CT does not show any acute intracranial abnormality
-Most recent systemic therapy Herceptin which is discontinued years ago. She has been on CT and MRI surveillance. She reports negative studies in the last 8 weeks. No overt contraindication to anticoagulation for atrial fibrillation with RVR.
-Cont Eliquis 5mg BID
# Hypotension
-Resolved-CT preliminary without evidence of acute PE
-Echocardiogram shows EF 60 to 65%
-Hypotension could be in the setting of A-fib
-Management per primary team
Thank you very much for this consult. There are no further inpatient heme-onc indications to follow patient. We will sign off. Please contact our office if any further questions.
Agree with Dr. Potter. Pt seen and examined separately. Maricarmen RODRIGUEZ
--- NOTE | 2025-05-10 13:45 | PTCARENOTE ---
Ready bed 419-2 assigned. Report called to Sofya ONTIVEROS on 4. Transport called to move patient to new room.
--- NOTE | 2025-05-10 14:16 | CM ---
Patient transferred to Room 419-2.
--- NOTE | 2025-05-10 16:36 | PTCARENOTE ---
Pt transferred from ICU. Pt ambulated into room with assistance. Pt AAOX3, able to make needs known, VSS. Pt oriented to unit, call shipman within reach, bed in lowest position. Will continue will current plan.
[2025-05-10] MEDS: TOPROL XL 25 MG PO (20:27)
[2025-05-11 03:25] VITALS: BP 122/82
[2025-05-11 07:00] VITALS: BP 105/72
[2025-05-11 07:08] LABS: Hematocrit 38.9 % (37.0-47.0); Hemoglobin 13.2 g/dL (12.0-16.0); Mean Corp Hgb Conc. 33.9 g/dL (33.0-37.0); Mean Corpuscular Hgb 31.6 pg (27.0-31.0); Mean Corpuscular Volume 93.1 fL (81.0-99.0); Mean Platelet Volume 9.7 fL (7.4-10.4); Platelet Count 183 10^3/uL (130-400); Red Blood Cell Count 4.18 10^6/uL (4.20-5.40); Red Cell Dist. Width 13.2 % (11.5-14.5); White Blood Cell Count 7.4 10^3/uL (4.8-10.8)
[2025-05-11 07:25] LABS: Blood Urea Nitrogen 16 mg/dl (7-17); Calcium 9.3 mg/dl (8.4-10.2); Carbon Dioxide 23 mmol/L (22-30); Chloride 111 mmol/L (98-107); Estimated Creatinine Clearance 60 ml/min; Glucose 95 mg/dl (70-99); Magnesium 2.1 mg/dl (1.6-2.3); Potassium 4.2 mmol/L (3.5-5.1); Sodium 139 mmol/L (135-145); eGFR > 60.00
[2025-05-11 07:30] LABS: NT-proBNP 2060 pg/ml
--- NOTE | 2025-05-11 08:35 | W.PN.CD ---
Today's Communication / Plan
-
Continue amiodarone and Eliquis.
Resume Entresto.
Okay for discharge from cardiovascular standpoint. She will follow-up with Dr. Mariscal at [place].
Impression / Plan
-
AFIB, type and onset unknown:
-back in sinus
-QTC >440m/s, given hypotension with arrrhythmia, will start amiodarone as a bridge to ablation
-start amiodarone 400mg po bid x14 days then 200mg daily
-Brief PAF noted in the past per OP chart. Brief episodes of SVT reports, and one clear episode of afib for 18 seconds per chart. However, OAC was not initiated at that time.
-[id number] score is at least 5 for age, female, CHF, TIA. D/w Neurosurg, ok for DOAC will transition to Eliquis.
Light-headedness:
-improved
-s/p IVF
Hypotension:
-seems linked to arrhythmia
HFpEF:
-On 05/09 PM, she felt more sob, cxr c/w mild pulm edema.
-she responded to low dose lasix
-Continue SGLT2 i, MRA, bb
-resume entresto
Hypokalemia:
-replace and monitor
Hx breast ca with mets lung and brain:
-follows as OP
Subjective: feeling well. No CV complaints. Wants to go home today.
Data:
TTE 05/09/25:CONCLUSIONS
Normal left ventricular size, wall thickness and systolic function.
LV ejection fraction is 60-65% .
Mild mitral regurgitation.
Moderate tricuspid regurgitation
Compared to previous report 08/03/2024 moderate tricuspid regurgitation is
present. Previously mild
CT Scan chest 05/09/25: MODERATE CARDIOMEGALY with SEVERE LEFT ATRIAL ENLARGEMENT. New 1.9 cm enlarged right upper paratracheal lymph node. Previous left upper lobe pulmonary wedge resection with associated scarring. Moderate elevation of the left
hemidiaphragm secondary to left lung volume loss. 2.6 cm PULMONARY ARTERIOVENOUS MALFORMATION in the lingula. Mild radiation pneumonitis in the right lung apex. Mild to moderate subpleural scarring and subsegmental atelectasis in the lower lobes.
Previous right breast mastectomy. Multiple chronic left posterior rib osteotomies. Severe discogenic degenerative disease in the thoracolumbar junction.
Physical Exam
Vital Signs/Labs
Vital Signs
Temp Pulse Resp BP Pulse Ox
98.3 F 80 16 105/72 95
05/11/25 07:00 05/11/25 07:00 05/11/25 07:00 05/11/25 07:00 05/11/25 07:00
05/10/25 05/11/25 05/12/25
06:59 06:59 06:59
Actual Weight 136 lb 3.931 oz
05/11/25 06:43
05/11/25 06:43
PT 13.4 Sec (11.4-14.6) 05/09/25 11:04
INR 0.97 05/09/25 11:04
APTT Cancelled 05/10/25 11:00
Magnesium 2.1 mg/dl (1.6-2.3) 05/11/25 06:43
05/09/25 05/10/25 05/11/25
04:28 04:10 06:43
Yof-M-Gtcirydtftc Pept 443 1410 2060
LAB Results
05/09/25
04:28
Troponin I 0.012
Physical Exam
Constitutional: No acute distress and Comfortable
Cardiovascular: Rhythm & rate is regular, Pedal edema is absent, S1S2 is normal and Murmur/rub/gallop absent
Respiratory: Respiratory effort normal and Lungs clear to auscul.
Neuro/Psych: AO x 3
Data Reviewed
-
Date of Service: May 11, 2025
Medical Decision Making: Reviewed Test Results, Independent Historian Assessment, Test Interpretation and Review of Case with other Provider
EKG: Tracing Personally Visualized and interpreted
Echo: Report Reviewed by me
Labs: Labs Reviewed by me
[2025-05-11] MEDS: TOPROL XL 25 MG PO (09:00)
[2025-05-11] MEDS: INSPRA 25 MG PO (09:00)
[2025-05-11] MEDS: FARXIGA 10 MG PO (09:00)
[2025-05-11] MEDS: LASIX 40 MG IV (09:01)
[2025-05-11] MEDS: PACERONE 400 MG PO (09:01)
[2025-05-11] MEDS: ELIQUIS 5 MG PO (09:01)
[2025-05-11] MEDS: ENTRESTO 24 MG/26 MG 1 TAB PO (09:06)
--- NOTE | 2025-05-11 10:12 | W.PN.HOSP.TC ---
Addendum entered and electronically signed by Enriqueta Mello MD 05/11/25 12:54:
total DC time 40 min
Original Note:
Today's Communication/Plan
-
DC home today
Assessment / Plan
Assessment / Plan
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
melanoma; p/w dizziness and lightheadedness. Her symptoms began around 2:30-3:00 AM when the patient tried to get out of bed. She noted a significant drop in her blood pressure, with home measurements showing 70/50 mmHg.
She denies to other symptoms such as CP, SOB, abd pain, change in BM etc.
In the ED, she was found to be in atrial fibrillation with rapid ventricular response, and low blood pressure. BP slightly improved following IVF but trended down again.
CT PE:
1. MODERATE CARDIOMEGALY with SEVERE LEFT ATRIAL ENLARGEMENT.
2. New 1.9 cm enlarged right upper paratracheal lymph node.
3. Previous left upper lobe pulmonary wedge resection with associated scarring.
4. Moderate elevation of the left hemidiaphragm secondary to left lung volume loss.
5. 2.6 cm PULMONARY ARTERIOVENOUS MALFORMATION in the lingula.
6. Mild radiation pneumonitis in the right lung apex.
7. Mild to moderate subpleural scarring and subsegmental atelectasis in the lower lobes.
8. Previous right breast mastectomy.
9. Multiple chronic left posterior rib osteotomies.
10. Severe discogenic degenerative disease in the thoracolumbar junction.
A/P:
# New onset Atrial fibrillation with rapid ventricular response, spontaneously converted to NSR
# Hypotension likely related to A fib, resolved
# Dizziness and lightheadedness, due to above
# h/o Paroxysmal supraventricular tachycardia
s/p IVF, now off
echo: EF 60-65%. Mild mitral regurgitation. Moderate tricuspid regurgitation. Compared to previous report 08/03/2024 moderate tricuspid regurgitation is present. Previously mild
Card on board
resumed farxiga, Toprol 25 mg BID, Eplerenone 25 mg daily,
added amiodarone 400mg bid x 14 days then 200mg daily
Resumed entresto
Started Eliquis
follow up with typical cardiology team
Other medical conditions:
# Metastatic breast cancer to brain and lung, previously treated with surgery and medical therapy, last treatment 2019
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
DVT ppx: Eliquis
Code status: DNR DNI, confirmed with pt
DW Cardiology
DW RN
Anticipated Discharge: Today
Subjective/Interval History
-
Date of Service: May 11, 2025
Objective Data
-
Labs:
Laboratory Results
05/11/25
06:43
WBC 7.4
Hgb 13.2
Hct 38.9
Plt Count 183
Sodium 139
Potassium 4.2
Chloride 111 H
Carbon Dioxide 23
BUN 16
Creatinine 0.8
Glucose 95
Calcium 9.3
Vital Signs:
Vital Signs
Temp Pulse Resp BP Pulse Ox
36.8 C 80 16 105/72 95
05/11/25 07:00 05/11/25 09:00 05/11/25 07:00 05/11/25 09:00 05/11/25 07:00
I&O
05/10/25 05/11/25 05/12/25
06:59 06:59 06:59
Intake Total 2356 / 2367 753 / 753
Output Total 950 / 1650 700 / 700
Balance 1406 / 717 53 / 53
Review of Systems
-
History Source: Patient
All other systems: Reviewed and negative
Physical Exam
-
General: Well Developed, Well Nourished, No Apparent Distress, Comfortable and Conversant; Negative Respiratory Distress
HEENT: Normocephalic, Atraumatic, Nose Appears Normal and Ears Appear Normal; Negative Oxygen
Respiratory: Clear to Auscultation and Non Labored Respirations; Negative Accessory Resp Muscle Use
Cardiac: Regular Rhythm and S1/S2
GI: Soft, Nontender, Nondistended and Normal Bowel Sounds
Skin: Warm and Dry
Neuro: Awake, Alert, Oriented and AO x 3
Psych: Calm and Intact Judgement/Insight
Data Reviewed
-
Medical Tests (Nuc Med, Echo etc): Report Reviewed by me (echo)
Labs: Labs Reviewed by me
[2025-05-11] MEDS: PROTONIX IV 40 MG IV (10:36)
[2025-05-11] MEDS: NSS (PRESERVATIVE FREE) 10 ML IV (10:36)
[2025-05-11 11:00] VITALS: BP 110/69
--- NOTE | 2025-05-11 11:28 | W.PN.PUL3 ---
Today's Communication / Plan
-
Patient being prepared for discharge home le
Outpatient pulmonary office follow-up will be arranged given her lymphadenopathy in the paratracheal region (4R)
Recommend to continue with cardiac meds with close follow-up with cardiology
Consume low sodium and fluid restricted diet with daily weights to prevent heart failure
No additional recommendations at this time. Pulmonary service will now sign off. Please reconsult if there are any additional questions/concerns, or if patient's respiratory status deteriorates.
Assessment
-
Assessment: 69-year-old female former tobacco smoker with a past medical history of metastatic breast cancer with mets to brain and lung previously treated with mastectomy, XRT + chemotherapy with left lung wedge resection + thoracotomy, history of
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 Patient woke up at approximately 3 AM prior to arrival and felt dizzy
and almost passed out. 911 called and her BP was 70/30 which improved to 100/54 with 800 cc of NS 0.9%. Patient found to be in atrial fibrillation which is new onset. In the ER she was found to be in A-fib with RVR with ventricular rate
110�130s,, BP 90/60 and saturating 98% on room air. She was afebrile to 97.8 �F. Labs significant for potassium 3.4, magnesium 2.4, glucose 92, creatinine 1, proBNP 443 and troponin negative at 0.012. Blood cultures were collected. CXR showed
left basilar opacification likely due to a small effusion with adjacent atelectasis/consolidation. CTA chest showed moderate cardiomegaly with severe left atrial enlargement with a new 1.9 cm enlarged right paratracheal lymph node, with a 2.6 cm
pulmonary AVM in the lingula, with radiation pneumonitis changes in the right lung apex, and lower lobe predominant mild�moderate subpleural scarring and subsegmental atelectasis and no evidence of an effusion or pneumothorax. In the ER she was
given total of 3 L NS 0.9%. Cardiology and neurology have been consulted. CT head showed no acute intracranial abnormality and there was left frontal area of encephalomalacia due to prior resection of intracranial metastasis. Anticoagulation was
started after our cardiology team reached out to the patient's solar system installer at [facility] (Dr. Mariscal). Patient then admitted to the ICU for close monitoring and Textile Pin Worker services consulted for additional management/recommendations.
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
craniotomy and followed by RT (completed in October 2008), history of a presumed retinal TIA, paroxysmal SVT, right arm melanoma, former tobacco smoker, fungal cavitation (aspergillus) with hemoptysis s/p right lower lobe mass resection (2008),
lower extremity varicose veins s/p sclerotherapy (February 2025)
Impression:
#New onset atrial fibrillation with RVR now in NSR since 05/09
#Hypotension due to above � now normotensive
#Hypokalemia (mild) � resolved
#History of paroxysmal SVT
#Valvular heart disease with moderate TR and mild MR (per TTE from 05/09/2025)
#Acute on chronic HFpEF (follows with Dr. Arabella Mariscal at [facility])
#History of metastatic breast cancer (diagnosed 2002) s/p mastectomy, chemo/XRT c/b RUL radiation pneumonitis with mets to brain s/p craniotomy/XRT (completed 10/2008) and mets to lung (s/p DANA wedge resection)
#Pulmonary AVM in lingula (2.6cm)
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
#Lower extremity varicose veins s/p sclerotherapy (February 2025)
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
#History of paroxysmal SVT
#Former tobacco smoker with [id number] history, quit 1992
#Right-sided paratracheal lymphadenopathy
Plan:
- Patient admitted to the ICU for closer monitoring given her hypotension with A-fib with RVR as well as systemic anticoagulation with heparin drip in the setting of prior brain mets s/p craniotomy/XRT
- Her solar system installer, Dr. Lance, reached out to the patient's solar system installer, Dr. Arabella Mariscal, and decision made to start anticoagulation, which was also reviewed by the patient's neuro oncologist
- If there is any acute change in mental status then a stat CT head should be done with notification to neurologist
- Neurology consulted and recommendations appreciated
- Patient converted into NSR on the afternoon of 05/09, and has remained in NSR
- Started PO amio load yesterday per cardiology; she has remained in NSR since afternoon of 05/09
- Continue BB
- Replete K>4, Mg>2
- Cardiology on board and recommendations appreciated
- On 05/09, anticoagulation started with IV heparin - -> now on Eliquis and off heparin gtt.
- Maintain SpO2 >90-94%
- Continue aspiration precautions
- prn nebulized bronchodilators - not currently bronchospastic
- Incentive spirometer encouraged 10x per hour for at least 4 hrs a day
- She has an enlarged station 4R lymph node; unable to appreciate if this lymph node was enlarged on prior CT chest imaging from 2021, which I personally reviewed. This should be followed as an outpatient to assess for persistence, and if there is
no decrease in size then would offer EBUS�FNA via bronchoscopy; she can get this done through [facility] if she wishes as seems like majority of her doctors are located there, or she can continue to have this monitored with us at [facility]
- Maintain MAP>65
- Slowly resume patient's antihypertensive medications
- Pt now off IVF, given lasix overnight on 05/09 - 05/10, and also given another dose this morning. CXR today shows improved pulmonary vascular congestion, although still present. Continue to monitor volume status daily to assess if additional lasix
is needed.
- Maintain euglycemia with goal BG 140-180
- Trend H/H and transfuse if needed to keep Hb>7g/dL; keep plt>20k, unless there is concern for bleeding then keep plt>50k
- DVT ppx: Eliquis
Code status: DNR/DNI
Patient is being prepared for discharge home. No additional recommendations at this time. Pulmonary service will now sign off. Thank you for allowing us to be involved in the care of this patient. Please reconsult if there are any additional
questions/concerns, or if patient's respiratory status deteriorates.
Data:
CT head 05/09/2025:
1. No acute intracranial abnormality identified.
2. Left frontal area of encephalomalacia related to previous resection of intracranial metastasis.
CTA chest 05/09/2025:
1. MODERATE CARDIOMEGALY with SEVERE LEFT ATRIAL ENLARGEMENT.
2. New 1.9 cm enlarged right upper paratracheal lymph node.
3. Previous left upper lobe pulmonary wedge resection with associated scarring.
4. Moderate elevation of the left hemidiaphragm secondary to left lung volume loss.
5. 2.6 cm PULMONARY ARTERIOVENOUS MALFORMATION in the lingula.
6. Mild radiation pneumonitis in the right lung apex.
7. Mild to moderate subpleural scarring and subsegmental atelectasis in the lower lobes.
8. Previous right breast mastectomy.
9. Multiple chronic left posterior rib osteotomies.
10. Severe discogenic degenerative disease in the thoracolumbar junction.
Transthoracic echocardiogram 05/09/2025:
Normal left ventricular size, wall thickness and systolic function.
LV ejection fraction is 60-65% .
Mild mitral regurgitation.
Moderate tricuspid regurgitation
Compared to previous report 08/03/2024 moderate tricuspid regurgitation is
present. Previously mild
Total time spent today was 28 minutes for this encounter. Time includes reviewing laboratory test/imaging results, reviewing pertinent medical records, obtaining and reviewing medical history, performing an appropriate exam, ordering medications,
tests and procedures. Time also includes documentation of this encounter, coordinating patient care and communicating with other healthcare professionals. Total time does not include separately billed tests performed on this date of service.
Subjective Data
-
Date of Service:
Date of Service: May 11, 2025
Chief Complaint: Pulmonary Follow Up
Subjective:
Patient seen and evaluated today at bedside. No acute events reported overnight. Being prepared for discharge home today. Currently denies chest pain, fevers or chills.
Review of Systems
General: Other (Negative unless mentioned above)
Objective Data
Data Reviewed
Vital Signs / I&O / Oxygen:
Vital Signs
Temp Pulse Resp BP Pulse Ox
97.6 F 72 18 110/69 97
05/11/25 11:00 05/11/25 11:00 05/11/25 11:00 05/11/25 11:00 05/11/25 11:00
Intake and Output
05/10/25 05/11/25 05/12/25
06:59 06:59 06:59
Intake Total 2356 / 2367 753 / 753
Output Total 950 / 1650 700 / 700
Balance 1406 / 717 53 / 53
SaO2 97
Physical Exam
General: Respiratory Distress (negative) and Comfortable
HEENT: Normocephalic and Anicteric
Cardiovascular: S1-S2, Rub (negative) and Peripheral Edema (negative)
Respiratory: Clear, Wheeze (negative), Non-Labored Respirations and Stridor (negative)
GI: Soft and Non Distended
Neurology: Awake, Alert, Oriented and Tremors (negative)
Skin: Warm, Dry and Cyanosis (negative)
Labs/Micro/Reports
Lab Data
05/11/25 06:43
05/11/25 06:43
Microbiology
05/09/25 10:45 Blood/Venous Blood Culture - Preliminary
No Growth in 48 hours- Final report to follow
05/09/25 09:15 Blood/Venous Blood Culture - Preliminary
Positive culture in progress
05/09/25 09:15 Blood/Venous Gram Stain - Preliminary
--- NOTE | 2025-05-11 12:33 | W.DCSUMMARY ---
Discharge Summary
Discharge Data
Date of Admission: 05/09/25
Date of Discharge: 05/11/25
-
Pending Results: No
Hospital Course
Principal Diagnosis:
New onset Atrial fibrillation (A fib) with rapid ventricular response, spontaneously converted to normal sinus rhythm
Hypotension and dizziness, both resolved, likely related to A fib
Chronic Diagnoses:�
h/o Paroxysmal supraventricular tachycardia
Metastatic breast cancer to brain and lung, previously treated with surgery and medical therapy, last treatment 2019
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
R arm melanoma
Consultations:�
Cardiology
Procedures:�
None
Clinical course:�
This is a 75-year-old female with past medical history as stated above, who presented with dizziness and lightheadedness. She also noted a significant drop in her blood pressure, with home measurements showing 70/50 mmHg.
She denies to other symptoms.
Problem 1:
New onset A fib with rapid ventricular response, spontaneously converted to normal sinus rhythm.
Hypotension and dizziness, likely related to A fib, both resolved.
Her echo showed: EF 60-65%. Mild mitral regurgitation. Moderate tricuspid regurgitation. Compared to previous report 08/03/2024 moderate tricuspid regurgitation is present.
She was started with amiodarone while in the hospital, and was discharged with 400mg bid x 14 days then 200mg daily after that.
She can continue with her prior to admission cardiac medications: Toprol 25 mg BID, Eplerenone 25 mg daily, Entresto.
She was started with Eliquis which she can continue going forward.
She can follow-up with her outpatient business owner/engineer following discharge.
As for the rest of her medical problems, they were stable during her hospital stay.
Discharge Plan
-
Patient Disposition: Home (Routine Discharge)
Discharge Diagnosis/Procedures: # New onset Atrial fibrillation (A fib) with rapid ventricular response, spontaneously converted to normal sinus rhythm
# Hypotension/Dizziness and lightheadedness, likely related to A fib, resolved
Condition: Good
Diet: As tolerated, Low Fat, Low Cholesterol and Low Sodium
Activity: As tolerated
Driving Restrictions: As prior to admission
Referrals:
Haja Ramirez MD [Active, Pulmonary Medicine] - in four to six weeks
Referral Note: Due to enlarged right paratracheal lymph node that needs to be monitored
Shefali Gordon MD [Family Provider, [facility]] - in less than 1 week
Additional Discharge Medication Instructions: We have added amiodarone: take 400 mg twice daily x 14 days, then 200 mg daily after that
We have started Eliquis for you
Prescriptions:
New
amiodarone 200 mg Tablet
400 mg PO BID Qty: 120 0RF
Rx Instructions:
amiodarone 400mg twice daily x 14 days then 200mg daily
Eliquis 5 mg Tablet
5 mg PO BID Qty: 60 0RF
Continued
atorvastatin 10 mg tablet
5 mg PO HS
psyllium Packet
1 packet PO DAILY
cyanocobalamin (vitamin B-12) [Vitamin B-12] 1,000 mcg Tablet
1,000 mcg PO DAILY
ascorbic acid (vitamin C) [Vitamin C] 500 mg Tablet
500 mg PO DAILY
aspirin 81 mg Tablet
81 mg PO DAILY
metoprolol succinate 25 mg tablet extended release 24 hr
25 mg PO BID
eplerenone 25 mg tablet
25 mg PO DAILY
coenzyme Q10 [CoQ-10] 100 mg Capsule
200 mg PO DAILY
cholecalciferol (vitamin D3) [Vitamin D3] 50 mcg (2,000 unit) Tablet
50 mcg PO DAILY
dapagliflozin propanediol [Farxiga] 10 mg tablet
10 mg PO DAILY
Entresto 24-26 mg tablet
1 tab PO BID
Discharge Orders:
Discharge Patient (As Directed); Ordered 05/11/25
Ordered By: Enriqueta Mello
Discharge Date and Time
Print Language: [id number]
== END 2025-05-11 12:44 | disposition home or self-care (01) | DRG 308 ==
LOC: 4 WEST ACU 09:51
PROVIDERS: Nurse Practitioner Primary Care; ADMITTING PHYSICIAN Internal Medicine; CONSULT PHYSICIAN Internal Medicine Cardiovascular Disease; CONSULT PHYSICIAN Internal Medicine Critical Care Medicine; CONSULT PHYSICIAN Psychiatry & Neurology Neurology; EMERGENCY PHYSICIAN Emergency Medicine; FAMILY PHYSICIAN Student in an Organized Health Care Education/Training Program; OTHER PHYSICIAN Internal Medicine Hematology & Oncology
DX: I48.91 Unspecified atrial fibrillation (principal); I50.33 Acute on chronic diastolic (congestive) heart failure; C78.00 Secondary malignant neoplasm of unspecified lung; C79.31 Secondary malignant neoplasm of brain; C50.919 Malignant neoplasm of unspecified site of unspecified female breast; Z87.891 Personal history of nicotine dependence; I95.89 Other hypotension; E87.6 Hypokalemia; Z79.82 Long term (current) use of aspirin; Z66 Do not resuscitate; I47.19 Other supraventricular tachycardia; Z86.73 Personal history of transient ischemic attack (TIA), and cerebral infarction without residual deficits; Z60.2 Problems related to living alone
CPT/HCPCS: 70450; 71045; 71046; 71275; 80048; 80053; 83605; 83735; 83880; 84100; 84484; 85025; 85027; 85610; 85730; 87040; 87154; 87205; 93005; 93306; 94640; 96360; 96361; 99285; Q9967

== ENCOUNTER → 2025-05-16 09:36 | Outpatient (REF) | payer MEDICARE, SELFPAY | LOC: RAD 09:36 | PROVIDERS: ATTENDING PHYSICIAN Nurse Practitioner; FAMILY PHYSICIAN Student in an Organized Health Care Education/Training Program | DX: I83.11 Varicose veins of right lower extremity with inflammation (principal); I83.12 Varicose veins of left lower extremity with inflammation | CPT/HCPCS: 93970 ==

== ENCOUNTER 2025-09-19 06:48 | Outpatient (RCR) | payer MEDICARE, SELFPAY | END 2025-09-19 23:59 | disposition home or self-care (01) | LOC: RPT 06:48 | PROVIDERS: ATTENDING PHYSICIAN Student in an Organized Health Care Education/Training Program | DX: M54.59 Other low back pain (principal); Z73.6 Limitation of activities due to disability; R20.0 Anesthesia of skin; M25.551 Pain in right hip; M79.605 Pain in left leg; M79.604 Pain in right leg; M62.81 Muscle weakness (generalized) | CPT/HCPCS: 97112; 97163 ==

== ENCOUNTER 2025-10-22 10:41 | Outpatient (RCR) | payer MEDICARE, SELFPAY | END 2025-10-22 23:59 | disposition home or self-care (01) | LOC: RPT 10:41 | PROVIDERS: ATTENDING PHYSICIAN Student in an Organized Health Care Education/Training Program | DX: R20.0 Anesthesia of skin; M25.551 Pain in right hip; M62.81 Muscle weakness (generalized); M54.59 Other low back pain; Z73.6 Limitation of activities due to disability; M79.605 Pain in left leg; M79.604 Pain in right leg | CPT/HCPCS: 97110; 97112 ==

== ENCOUNTER 2025-11-01 13:47 | Outpatient (RCR) | payer MEDICARE, SELFPAY | END 2025-11-01 23:59 | disposition home or self-care (01) | LOC: RPT 13:47 | PROVIDERS: ATTENDING PHYSICIAN Student in an Organized Health Care Education/Training Program | DX: M54.59 Other low back pain (principal); Z73.6 Limitation of activities due to disability; R20.0 Anesthesia of skin; M25.551 Pain in right hip; M79.605 Pain in left leg; M79.604 Pain in right leg; M62.81 Muscle weakness (generalized) | CPT/HCPCS: 97110; 97112 ==